=== PATIENT | male | born 1950 | race Caucasian/White ===

== ENCOUNTER 2020-11-24 12:03 | Emergency (ER) | payer OTHER, SELFPAY ==
[2020-11-24 12:13] VITALS: BP 131/84; PULSE 111; RESP 18; TEMP 36.5; O2SAT 94; BMI 34.5
--- NOTE | 2020-11-24 13:41 | US_ITS ---
WS: [id number] TESTICULAR ULTRASOUND HISTORY: testicular pain COMPARISON: None available. TECHNIQUE: Real-time and color Doppler imaging or utilized to perform a testicular ultrasound. Right testicle: 3.5 cm x 2.9 cm x 2.2 cm. Normal size and echogenicity. No mass or torsion. Normal color Doppler is present throughout. Systolic and diastolic velocities are both present. No significant hydrocele. Right epididymis: Normal epididymis with no increased vascularity. Left testicle: 3.4 cm x 2.3 cm x 1.9 cm. Normal size and echogenicity. No mass or torsion. Normal color Doppler is present throughout. Systolic and diastolic velocities are both present. No significant hydrocele. Left epididymis: Normal epididymis with minimal increased vascularity. US/US scrotum [id number] IMPRESSION: 1. No testicular mass or torsion. 2. Questionable very minimal increased vascularity within the LEFT epididymis. Mild epididymitis not excluded.
[2020-11-24 14:32] VITALS: BP 148/86; PULSE 88; RESP 16; O2SAT 96
--- NOTE | 2020-11-24 15:28 | ED_ITS ---
HPI - Male Genitourinary General: Chief complaint: Urogenital-Male Stated complaint: GROIN ISSUE Time Seen by Provider: 11/24/20 13:41 Source: patient Mode of arrival: ambulatory Limitations: no limitations History of Present Illness: HPI Narrative: Patient is a 70-year-old male who presents to the emergency department with testicular pain. He states that this has been going on for about 3 to 4 months now. He said he started with some swelling that he felt in the scrotum and now he has pain. He denies any penile discharge or bleeding. He denies any dysuria. Because this is persistent he would like to be evaluated for this. MD Complaint: testicle swelling Onset (ago): month(s) (4) Duration: constant Location: left testicle Severity: moderate Quality: aching Exacerbating factors: palpation Associated symptoms: Deny discharge, dysuria, fevers/chills, hematuria, nausea, rash, swelling, urinary incontinence, urinary retention, mass or vomiting Review of Systems General: Reports: 10 or more systems reviewed and unremarkable except in HPI and below GI: Denies: nausea or vomiting : Denies: dysuria, urinary incontinence or hematuria Physical Exam Const: COMMON NORMALS: no acute distress, average body habitus, patient oriented x3, no limitations, healthy appearing, alert and well nourished HENMT: COMMON NORMALS: normocephalic, atraumatic and moist oral mucous membranes HEAD & SCALP: normocephalic and atraumatic Neck/C-Spine: COMMON NORMALS: no meningeal signs and no JVD Resp: COMMON NORMALS: normal respiratory effort, No retractions, No use of accessory muscles, clear to auscultation bilaterally and percussion normal AUSCULTATION: clear to auscultation bilaterally PERCUSSION: percussion normal Cardio: COMMON NORMALS: no JVD, regular rate, regular rhythm, S1 normal heart sound present, S2 normal heart sound present, No gallops present (Cardio), No clicks present (Cardio), No murmurs present (Cardio), No rub (Cardio) and Peripheral pulses 2+ throughout RATE: regular rate RHYTHM: regular rhythm HEART SOUNDS: S1 normal heart sound present and S2 normal heart sound present PERIPHERAL PULSES: Peripheral pulses 2+ throughout GI: COMMON NORMALS: Normal to inspection, nondistended, normoactive bowel sounds present, Soft to palpation, non-tender, No hepatosplenomegaly present, no masses and no bruits PALPATION: Yes Soft to palpation and Yes No hepatosplenomegaly present : PENIS: normal penis and uncircumcised SCROTUM: Yes testes descended bilaterally TESTES: Yes testicular tenderness Testicular tenderness laterality: left and Yes epididymal tenderness Extremity: COMMON NORMALS: normal to inspection, full ROM, capillary refill normal, no calf tenderness and no pedal edema Neuro: COMMON NORMALS: patient oriented x3 SENSORIUM/ORIENTATION: Yes alert MENINGEAL SIGNS: Yes no meningeal signs Skin: COMMON NORMALS: no rashes or lesions noted, no wounds, turgor normal, no jaundice, no petechiae and no mottling GENERAL SKIN EXAM: no rashes or lesions noted and turgor normal Course Reevaluation(s): Reevaluation #1: Discussed his imaging findings with him. Features consistent with epididymitis. He will be treated with oral levofloxacin and he is to follow-up with his primary care provider. He voiced understanding and is in agreement with the plan. Time: 15:28 Vital Signs: Vital signs: Vital Signs Temperature 97.7 F 11/24/20 12:13 Pulse Rate 88 11/24/20 14:32 Respiratory Rate 16 11/24/20 14:32 Blood Pressure 148/86 11/24/20 14:32 Pulse Oximetry 96 11/24/20 14:32 MDM - Male MDM Narrative: Medical decision making narrative: 70-year-old male who presents to the emergency department with testicular pain. Evaluation in the emergency department is consistent with epididymitis based on ultrasound findings. He is discharged home with a prescription for levofloxacin. Medical Records: Attestation: I reviewed the patient's medical records. Imaging Data: US: Attestation: I personally reviewed and interpreted this imaging study as follows: Radiologist's impression: [address] [id number] ReportSigned Patient: Naomy JIMÉNEZ #: [id number]: [id number]#:[id number]/Sex: 70 / MADM Date: 11/24/20Loc: ERRoom/Bed:Attending Dr: Ordering Provider/Ordering MD: Cristobal Stephens MD, [facility] – [place], [place] Date of Service: 11/24/20 Procedure(s): US scrotum 80691 Accession Number(s): [id number] Report Number: [id number] WS: [id number] TESTICULAR ULTRASOUND HISTORY: testicular pain COMPARISON: None available. TECHNIQUE: Real-time and color Doppler imaging or utilized to perform a testicular ultrasound. Right testicle: 3.5 cm x 2.9 cm x 2.2 cm. Normal size and echogenicity. No mass or torsion. Normal color Doppler is present throughout. Systolic and diastolic velocities are both present. No significant hydrocele. Right epididymis: Normal epididymis with no increased vascularity. Left testicle: 3.4 cm x 2.3 cm x 1.9 cm. Normal size and echogenicity. No mass or torsion. Normal color Doppler is present throughout. Systolic and diastolic velocities are both present. No significant hydrocele. Left epididymis: Normal epididymis with minimal increased vascularity. US/US scrotum [id number] IMPRESSION: 1. No testicular mass or torsion. 2. Questionable very minimal increased vascularity within the LEFT epididymis. Mild epididymitis not excluded. Dictated By:Shweta Garcia DOSigned By:Shweta Garcia DOSigned Date/Time:11/24/20 1507DD/ 1505 Discharge Plan Discharge Patient Disposition: Home Clinical Impression: Epididymitis Condition: Stable Prescriptions: New levofloxacin 500 mg tablet 500 mg PO DAILY 10 Days Qty: 10 RF: 0 Discharge Orders: Discharge ED (Routine); Ordered 11/24/20 Ordered By: Cristobal Stephens Referrals: ALEKS FINN, [Primary Care Provider] - 1-3 days Discharge Diet: Usual diet Discharge Activity: Increase activity as tolerated Patient Instructions: Epididymitis (ED) Activity Restrictions/Additional Instructions: Return for any new or worsening symptoms. Follow-up with your primary care provider within 3 days. Take the antibiotic as prescribed. Drink plenty of fluids to keep well-hydrated. Coding Level of Care Code ED Interlocking Installer for Addison Lehman
== END 2020-11-24 16:02 | disposition home or self-care (01) ==
PROVIDERS: Emergency Provider Family Medicine
DX: N45.1 Epididymitis (principal)
CPT/HCPCS: 76870; 99282

== ENCOUNTER → 2021-12-03 14:55 | Outpatient (BNVA) | payer OTHER, SELFPAY | PROVIDERS: Referring Provider Family Medicine; Visit Provider Podiatrist Foot & Ankle Surgery | DX: I73.9 Peripheral vascular disease, unspecified (principal); M77.41 Metatarsalgia, right foot; M77.42 Metatarsalgia, left foot; M20.31 Hallux varus (acquired), right foot; M20.32 Hallux varus (acquired), left foot; I87.2 Venous insufficiency (chronic) (peripheral); F17.210 Nicotine dependence, cigarettes, uncomplicated | CPT/HCPCS: 99204 ==

== ENCOUNTER → 2022-02-02 14:24 | Outpatient (BNVA) | payer OTHER, SELFPAY | PROVIDERS: Visit Provider Podiatrist Foot & Ankle Surgery | DX: I73.9 Peripheral vascular disease, unspecified (principal); M77.41 Metatarsalgia, right foot; M77.42 Metatarsalgia, left foot; M20.31 Hallux varus (acquired), right foot; M20.32 Hallux varus (acquired), left foot; I87.2 Venous insufficiency (chronic) (peripheral); M79.672 Pain in left foot; M79.671 Pain in right foot | CPT/HCPCS: 99214 ==

== ENCOUNTER 2022-04-15 08:02 | Outpatient (CLI) | payer OTHER, SELFPAY ==
--- NOTE | 2022-04-15 | USCV_ITS ---
Krishna Bernard Age: 71 Gender: M : 1950 Exam Date: 04/15/2022 08:16 Ordering Phys: Lefty Kumar DPM Technologist: Exam Location: [facility] [place]_ Indication: poor pulses RIGHT LEFT Brachial 155.00 mmHg Brachial 155.00 mmHg Pressure (mmHg) Waveform Pressure (mmHg) Waveform 144.00 Above Knee 191.00 149.00 Below Knee 182.00 119.00 EDGE CUTTER 162.00 130.00 DPA 122.00 0.84 Ankle/Brachial Index 0.79 152.00 Pre-Exercise Toe Pressure 169.00 0.98 Pre-Exercise Toe/Brachial Index 1.00 FINDINGS Diminished resting ABIs bilaterally Normal resting TBI bilaterally Blunting of the dicrotic notch bilaterally CONCLUSIONS Features suggestive of mild peripheral arterial disease bilaterally Dr Frannie Thapa MD FAC (Electronically Signed) Final Date: 19 April 2022 10:09 S
== END 2022-04-15 08:03 | disposition home or self-care (01) ==
LOC: RAD 08:03
PROVIDERS: Visit Provider Podiatrist Foot & Ankle Surgery
DX: R09.89 Other specified symptoms and signs involving the circulatory and respiratory systems (principal)
CPT/HCPCS: 93923

== ENCOUNTER 2022-07-12 14:27 | Emergency (ER) | payer OTHER, SELFPAY ==
--- NOTE | 2022-07-12 14:42 | CTR_ITS ---
PROCEDURE INFORMATION: Exam: CT Head Without Contrast Exam date and time: 07/12/2022 3:04 PM Age: 72 years old Clinical indication: Weakness, extremity; Additional info: HX stroke, recent TECHNIQUE: Imaging protocol: Computed tomography of the head without contrast. Radiation optimization: All CT scans at this facility use at least one of these dose optimization techniques: automated exposure control; mA and/or kV adjustment per patient size (includes targeted exams where dose is matched to clinical indication); or iterative reconstruction. COMPARISON: No relevant prior studies available. RADIATION DOSE METRICS: Total DLP (mGy-cm): 1167.38 FINDINGS: Brain: Minimal hypoattenuating foci are noted in the anterior lateral ventricular periventricular white matter bilaterally. No intracranial hemorrhage. No acute cortical infarction identified. Ventricles: Focal hyperdense lesion anterior 3rd ventricle measuring 4.6 x 5.2 x 6.0 mm mm (series 3, image 23; series 8, image 38; series 7, image 36). No hydrocephalus. No evidence of increased intracranial pressure. Mild prominence of the ventricular system and subarachnoid spaces is consistent with the patient's age of 72 years. Paranasal sinuses: Visualized sinuses are unremarkable. No fluid levels. Mastoid air cells: Visualized mastoid air cells are well aerated. Bones/joints: No acute abnormality. No acute fracture. Soft tissues: Unremarkable. Vasculature: Atherosclerotic calcifications are present involving the carotid artery siphons bilaterally and the right vertebral artery. CT/CT head wo con* [id number] IMPRESSION: 1. Third ventricular colloid cyst. 2. Age appropriate supratentorial and infratentorial atrophy. 3. Chronic white matter microvascular ischemic disease. 4. No acute intracranial abnormality identified.
[2022-07-12 14:53] VITALS: BP 155/82; PULSE 92; RESP 14; TEMP 36.7; O2SAT 94; BMI 32.5
--- NOTE | 2022-07-12 15:05 | XR_ITS ---
WS: [id number] Portable AP upright chest, 07/12/2022 Clinical Data: weakness Comparison: None. Findings: No nodules, masses or effusions are seen. The heart is normal. The pulmonary vascularity is not increased. No pneumonia or pneumothorax is seen. The aortic arch shows mild tortuosity. XR/XR chest 1V portable [id number] Impression: Atherosclerosis.
[2022-07-12 16:30] LABS: Basophils % 0.5 %; Eosinophils # 0.3 10^3/uL (0.0-0.8); Eosinophils % 3.7 %; Hematocrit 46.5 % (42.0-52.0); Hemoglobin 15.7 g/dL (11.7-16.6); Lymphocytes # 2.1 10^3/uL (0.8-4.8); Lymphocytes % 28.3 %; Mean Corpuscular HGB Conc 33.8 g/dL (30.0-36.0); Mean Corpuscular Hemoglobin 32.4 pg (28.0-34.0); Mean Corpuscular Volume 95.9 fl (80-94); Monocytes # 0.7 10^3/uL (0.2-0.9); Monocytes % 9.3 %; Neutrophils # 4.27 10^3/uL (1.8-7.7); Neutrophils % 57.9 %; Nucleated Red Blood Cells % 0 %; Platelet Count 181 10^3/cmm (130-400); Red Blood Count 4.85 10^6/uL (4.1-5.3); Red Cell Distribution Width 12.8 % (12.1-15.1); White Blood Count 7.4 10^3/uL (4.0-10.0)
[2022-07-12 16:55] LABS: Alanine Aminotransferase 21 U/L (0-41); Albumin Level 4.1 g/dL (3.5-5.2); Alkaline Phosphatase 87 U/L (40-130); Anion Gap 13.6 (5-19); Aspartate Amino Transferase 20 U/L (0-40); Blood Urea Nitrogen 12 mg/dL (8-23); Calcium 9.9 mg/dL (8.5-10.5); Carbon Dioxide 26 mmol/L (22-29); Chloride 97 mmol/L (98-107); Globulin 2.7 g/dL (1.3-4.6); Glucose 125 mg/dL (65-115); Osmolality Calculated 277 mOsm/kg (285-295); Potassium 3.6 mmol/L (3.5-5.1); Sodium 133 mmol/L (136-145); Total Bilirubin 0.7 mg/dL (0.15-1.2); Total Protein 6.8 g/dL (6.6-8.7)
[2022-07-12 18:56] VITALS: PULSE 98; RESP 17; O2SAT 97
--- NOTE | 2022-07-12 19:23 | ED_ITS ---
HPI - Weakness General: Chief complaint: Weakness Stated complaint: had a stroke last week and doesn't feel well Time Seen by Provider: 07/12/22 19:01 Source: patient Mode of arrival: ambulatory Limitations: no limitations History of Present Illness: 72-year-old male states that on Tuesday he started having some weakness and states that he had left-sided visual deficit he states it lasted roughly day is since resolved states he feels back to his baseline and [facility] but wanted to be checked to make sure nothing acute was going on he denies any headache denies any chest pain denies any fevers. Associated symptoms: Denies chest pain, chills, dysuria, easy bruising, fever(s), headache(s), nausea or vomiting Review of Systems Const: Denies: fever(s), chills, body aches or change in appetite Eyes: Denies: blurry vision or eye discomfort ENMT: Denies: throat pain or dental pain Card: Denies: chest pain Resp: Denies: dyspnea GI: Denies: abdominal pain, nausea, vomiting or diarrhea : Denies: dysuria Musc: Denies: neck pain or back pain Skin/Breast: Denies: rash Neuro: Denies: headache(s) Psych: Denies: depression Jake/Lymph: Denies: easy bruising All/Imm: Denies: urticaria PFSH ED PFSH: Medical History (Updated 07/12/22 @ 19:48 by Sandra Bang MD) Chronic venous insufficiency Social History Smoking and tobacco status: current every day smoker Physical Exam Const: COMMON NORMALS: no acute distress, patient oriented x3, healthy appearing and alert ORIENTATION/CONSCIOUSNESS: Yes oriented to person and Yes oriented to place HENMT: COMMON NORMALS: normocephalic and atraumatic HEAD & SCALP: normocephalic and atraumatic Eye: COMMON NORMALS: Equal, round and reactive pupils present and EOMs intact bilaterally PUPIL: Yes Equal, round and reactive pupils present Neck/C-Spine: COMMON NORMALS: full ROM and supple Chest: COMMONS NORMALS: normal inspection of the chest and normal palpation of entire chest wall Resp: COMMON NORMALS: normal respiratory effort, No retractions, No use of accessory muscles and clear to auscultation bilaterally AUSCULTATION: clear to auscultation bilaterally Cardio: COMMON NORMALS: regular rate, regular rhythm and No murmurs present (Cardio) RATE: regular rate RHYTHM: regular rhythm GI: COMMON NORMALS: Normal to inspection, nondistended, normoactive bowel sounds present, Soft to palpation, non-tender and no masses PALPATION: Yes Soft to palpation Extremity: COMMON NORMALS: normal to inspection and full ROM Neuro: COMMON NORMALS: patient oriented x3, moves all extremities and no focal motor deficits SENSORIUM/ORIENTATION: Yes alert, Yes oriented to person and Yes oriented to place CRANIAL NERVES: Yes CN normal except as noted SPEECH: speech normal GAIT: Yes Normal gait present MOTOR EXAM: 5/5 motor strength present throughout Psych: COMMON NORMALS: mental status grossly normal, Normal thought process present and cooperative THOUGHT PROCESS: Normal thought process present Skin: COMMON NORMALS: no rashes or lesions noted and no wounds GENERAL SKIN EXAM: no rashes or lesions noted Course Vital Signs: Vital signs: Vital Signs Temperature 98.0 F 07/12/22 14:53 Pulse Rate 98 07/12/22 18:56 Respiratory Rate 17 07/12/22 18:56 Blood Pressure 155/82 07/12/22 14:53 Pulse Oximetry 97 07/12/22 18:56 Oxygen Delivery Me thod 07/12/22 18:56 MDM - Weakness Medical Decision Making Patient presents here with weakness likely a TIA he did have a loss of vision that since resolved his NIH here is 0 CT head is normal he is already on a statin and aspirin daily he is to [facility] return if worsening he understands agrees to plan. Lab Data 07/12/22 16:00 07/12/22 16:[address] 07/12/22 14:42 IMPRESSION: 1. Third ventricular colloid cyst. 2. Age appropriate supratentorial and infratentorial atrophy. 3. Chronic white matter microvascular ischemic disease. 4. No acute intracranial abnormality identified. Chest X-Ray 07/12/22 15:05 Impression: Atherosclerosis. Laboratory Results WBC 7.4 10^3/uL (4.0-10.0) 07/12/22 16:00 RBC 4.85 10^6/uL (4.1-5.3) 07/12/22 16:00 Hgb 15.7 g/dL (11.7-16.6) 07/12/22 16:00 Hct 46.5 % (42.0-52.0) 07/12/22 16:00 MCV 95.9 fl (80-94) H 07/12/22 16:00 MCH 32.4 pg (28.0-34.0) 07/12/22 16:00 MCHC 33.8 g/dL (30.0-36.0) 07/12/22 16:00 RDW 12.8 % (12.1-15.1) 07/12/22 16:00 Plt Count 181 10^3/cmm (130-400) 07/12/22 16:00 MPV 10.0 fL (7.4-10.4) 07/12/22 16:00 Neut % (Auto) 57.9 % 07/12/22 16:00 Lymph % (Auto) 28.3 % 07/12/22 16:00 [place] % (Auto) 9.3 % 07/12/22 16:00 Eos % (Auto) 3.7 % 07/12/22 16:00 Baso % (Auto) 0.5 % 07/12/22 16:00 Neut # (Auto) 4.27 10^3/uL (1.8-7.7) 07/12/22 16:00 Lymph # (Auto) 2.1 10^3/uL (0.8-4.8) 07/12/22 16:00 [place] # (Auto) 0.7 10^3/uL (0.2-0.9) 07/12/22 16:00 Eos # (Auto) 0.3 10^3/uL (0.0-0.8) 07/12/22 16:00 Baso # (Auto) 0.0 10^3/uL (0.0-0.1) 07/12/22 16:00 Nucleated RBC % (auto) 0 % 07/12/22 16:00 Nucleated RBCs # 0.0 /100WBC 07/12/22 16:00 Sodium 133 mmol/L (136-145) L 07/12/22 16:00 Potassium 3.6 mmol/L (3.5-5.1) 07/12/22 16:00 Chloride 97 mmol/L (98-107) L 07/12/22 16:00 Carbon Dioxide 26 mmol/L (22-29) 07/12/22 16:00 Anion Gap 13.6 (5-19) 07/12/22 16:00 BUN 12 mg/dL (8-23) 07/12/22 16:00 Creatinine 0.8 mg/dL (0.7-1.2) 07/12/22 16:00 GFR Calculation Not Reportable 07/12/22 16:00 Glucose 125 mg/dL (65-115) H 07/12/22 16:00 Calculated Osmolality 277 mOsm/kg (285-295) L 07/12/22 16:00 Calcium 9.9 mg/dL (8.5-10.5) 07/12/22 16:00 Total Bilirubin 0.7 mg/dL (0.15-1.2) 07/12/22 16:00 AST 20 U/L (0-40) 07/12/22 16:00 ALT 21 U/L (0-41) 07/12/22 16:00 Alkaline Phosphatase 87 U/L (40-130) 07/12/22 16:00 Total Protein 6.8 g/dL (6.6-8.7) 07/12/22 16:00 Albumin 4.1 g/dL (3.5-5.2) 07/12/22 16:00 Globulin 2.7 g/dL (1.3-4.6) 07/12/22 16:00 Discharge Plan Discharge Patient Disposition: Home Clinical Impression: Brain TIA, Weakness Condition: Stable Prescriptions: No Action (DME) custom molded inserts with shoes See Rx Instructions .Route .MEDSUPPLY Qty: 1 0RF Rx Instructions: As directed Discharge Orders: Discharge ED (Routine); Ordered 07/12/22 Ordered By: Sandra Bang Referrals: [facility] [Primary Care Provider] - Discharge Diet: Advance as tolerated Discharge Activity: Resume usual activity Patient Instructions: Transient Ischemic Attack (ED) Coding Level of Care Code ED Vice President Of Engineering for Addison Fwmallory Exam Comprehensive NIH stroke score NIHSS Level Of Consciousness - 1a: 0 Level Of Consciousness Questions - 1b: Both Correct Level Of Consciousness Commands - 1c: Both Correct Best Gaze - 2: Normal Visual Farrell - 3: No Visual Loss Facial Palsy - 4: Normal Motor Arm Right - 5: No Drift Motor Leg Right - 6: No Drift Motor Leg Left - 6: No Drift Limb Ataxia - 7: Absent Sensory - 8: Normal Best Language - 9: No Aphasia Dysarthia - 10: Normal Extinction And Inattention - 11: 0
--- NOTE | 2022-07-12 19:37 | ECG_ITS ---
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 Measurements Intervals [place]ons Rate: 80 P: 82 WV: 178 QRS: 19 QRSD: 140 T: 34 QT: 402 QTc: 464 Interpretive Statements Possible sinus rhythm with bundle branch block. Baseline artifact ABNORMAL ECG No previous ECG available for comparison Electronically Signed On 07-14-2022 0:00:19 REPAIR COIL WINDER by Frannie Thapa M.D. [id number]
== END 2022-07-12 19:59 | disposition home or self-care (01) ==
PROVIDERS: Physician Assistant; Emergency Provider Emergency Medicine
DX: G45.9 Transient cerebral ischemic attack, unspecified (principal); R53.1 Weakness; F17.210 Nicotine dependence, cigarettes, uncomplicated
CPT/HCPCS: 36415; 70450; 71045; 80053; 85025; 93005; 99284

== ENCOUNTER 2022-08-14 15:06 | Emergency (ER) | payer OTHER, SELFPAY ==
[2022-08-14 15:14] VITALS: BP 122/78; PULSE 93; RESP 18; TEMP 36.7; O2SAT 93
--- NOTE | 2022-08-14 15:29 | CTR_ITS ---
PROCEDURE INFORMATION: Exam: CT Head Without Contrast Exam date and time: 08/14/2022 4:26 PM Age: 72 years old Clinical indication: Other: Vision changes in left eye; Patient HX: PT states had a stroke TECHNIQUE: Imaging protocol: Computed tomography of the head without contrast. Radiation optimization: All CT scans at this facility use at least one of these dose optimization techniques: automated exposure control; mA and/or kV adjustment per patient size (includes targeted exams where dose is matched to clinical indication); or iterative reconstruction. COMPARISON: CT head wo con* [id number] 07/12/2022 3:04 PM RADIATION DOSE METRICS: Total DLP (mGy-cm): 1105.4 FINDINGS: Brain: No acute infarct. No hemorrhage. Stable involutional changes of the brain. No mass effect. Cerebral ventricles: Stable 5 mm hyperdensity at the level of the foramen of Monro, likely a colloid cyst. No ventriculomegaly. Paranasal sinuses: Scattered paranasal sinus mucosal thickening, without air-fluid level present. Mastoid air cells: Visualized mastoid air cells are well aerated. Bones/joints: Unremarkable. No acute fracture. Soft tissues: Unremarkable. CT/CT head wo con* [id number] IMPRESSION: 1. No acute intracranial abnormality. 2. Stable 5 mm colloid cyst at the level of the foramina of Monro.
--- NOTE | 2022-08-14 16:19 | PC.NURSE ---
WHILE IN LOBBY WITH PT PT IS SITTING IN WC CONDITION IS UNCHANGED.
--- NOTE | 2022-08-14 16:44 | ED_ITS ---
HPI - Neuro Symptoms/Deficit General: Chief Complaint: Neuro Symptoms/Deficit Stated Complaint: weakness Time Seen by Provider: 08/14/22 16:33 Source: patient and family Mode of arrival: ambulatory Limitations: no limitations History of Present Illness: See nursing assessment. Patient states he has had intermittent blurred vision in the left eye for about a month. See ER visit from 07/12/2022. Patient had negative work-up at that time. Patient states that he is having strokes frequently. His strokes are actually blurred vision in his left eye. He denies any weakness. He denies any paresthesias or neurological changes other than left eye blurred vision. Patient was diagnosed with TIA on last visit. Patient states he takes a blood pressure medication statin drug, vitamins, baby aspirin daily. Denies any other blood thinners. He smokes about a pack cigarettes per day. Uses a cane to walk. Associated symptoms: Reports headache(s) (Occasional mild right-sided frontal headache.); Deny chest pain, nausea, vertigo or vomiting Review of Systems Const: Denies: fever(s) or chills Eyes: Reports: blurry vision; Denies: blind spots, photophobia or eye discomfort ENMT: Denies: throat pain Card: Denies: chest pain or palpitations Resp: Denies: dyspnea or wheezing GI: Denies: abdominal pain, nausea or vomiting : Denies: flank pain Musc: Denies: neck pain or back pain Skin/Breast: Denies: rash or pruritus Neuro: Reports: headache(s) (Occasional mild right-sided frontal headache.); Denies: numbness in extremities, weakness in extremities, sensory changes, lack of coordination, difficulty walking, dizziness, vertigo or confusion Psych: Denies: anxiety Jake/Lymph: Denies: enlarged lymph nodes PFSH ED PFSH: Medical History Chronic venous insufficiency Social History Smoking and tobacco status: current every day smoker NIH stroke score NIHSS: Level Of Consciousness - 1a: 0 Level Of Consciousness Questions - 1b: Both Correct Level Of Consciousness Commands - 1c: Both Correct Best Gaze - 2: Normal Visual Farrell - 3: No Visual Loss Facial Palsy - 4: Normal Motor Arm Right - 5: No Drift Motor Arm Left - 5: No Drift Motor Leg Right - 6: No Drift Motor Leg Left - 6: No Drift Limb Ataxia - 7: Absent Sensory - 8: Normal Best Language - 9: No Aphasia Dysarthia - 10: Normal Extinction And Inattention - 11: 0 Score: Total Score: 0 Physical Exam Const: COMMON NORMALS: no acute distress, patient oriented x3, no limitations and well nourished GENERAL APPEARANCE: cooperative HENMT: COMMON NORMALS: normocephalic and atraumatic HEAD & SCALP: normocephalic and atraumatic FACE & SINUS: normal facial exam Eye: COMMON NORMALS: Equal, round and reactive pupils present, EOMs intact bilaterally, conjunctivae normal and no scleral icterus GENERAL EYE: appearance normal, both eyes and all related structures CONJUNCTIVA: Yes conjunctivae normal PUPIL: Yes Equal, round and reactive pupils present Neck/C-Spine: COMMON NORMALS: full ROM, no lymphadenopathy, supple and no meningeal signs GENERAL: Yes normal visual inspection Lymph: LYMPHATIC: no lymphadenopathy noted Chest: COMMONS NORMALS: normal inspection of the chest and normal palpation of entire chest wall CHEST: No Ecchymosis present and No rash Resp: COMMON NORMALS: normal respiratory effort, No retractions and clear to auscultation bilaterally EFFORT & INSPECTION: No respiratory distress AUSCULTATION: clear to auscultation bilaterally Cardio: COMMON NORMALS: regular rate, regular rhythm and Peripheral pulses 2+ throughout JUGULAR VENOUS DISTENTION: no JVD RATE: regular rate RHYTHM: regular rhythm PERIPHERAL PULSES: Peripheral pulses 2+ throughout GI: COMMON NORMALS: Normal to inspection, nondistended, normoactive bowel sounds present and non-tender OTHER: Morbid obesity : COMMON NORMALS: Yes no CVA tenderness BLADDER/KIDNEY EXAM: Yes no CVA tenderness Back/Pelvis: COMMON NORMALS: no CVA tenderness Extremity: COMMON NORMALS: normal to inspection, full ROM and capillary refill normal Neuro: COMMON NORMALS: patient oriented x3, CN's II-XII intact bilaterally, no focal motor deficits and no sensory deficits noted MENINGEAL SIGNS: Yes no meningeal signs OTHER: No focal deficits. Patient states his vision in his left eye is slightly blurred. Otherwise no other deficits. Speech is clear. Patient ambulates without assistance. Psych: COMMON NORMALS: mental status grossly normal and Normal thought process present THOUGHT PROCESS: Normal thought process present Skin: COMMON NORMALS: no rashes or lesions noted and no wounds GENERAL SKIN EXAM: no rashes or lesions noted Course Vital Signs: Vital signs: Vital Signs Temperature 98.1 F 08/14/22 17:40 Pulse Rate 80 08/14/22 17:40 Respiratory Rate 18 08/14/22 17:40 Blood Pressure 128/72 08/14/22 17:40 Pulse Oximetry 95 08/14/22 17:40 Oxygen Delivery Me thod 08/14/22 17:40 MDM - Neuro Symptoms/Deficit Medical Decision Making Blurred vision left eye. Possible TIA versus retinal problem Lab Data 08/14/22 17:10 08/14/22 17:[address] 08/14/22 15:29 IMPRESSION: 1. No acute intracranial abnormality. 2. Stable 5 mm colloid cyst at the level of the foramina of Monro. Laboratory Results WBC 6.8 10^3/uL (4.0-10.0) 08/14/22 17:10 RBC 4.54 10^6/uL (4.1-5.3) 08/14/22 17:10 Hgb 14.4 g/dL (11.7-16.6) 08/14/22 17:10 Hct 44.2 % (42.0-52.0) 08/14/22 17:10 MCV 97.4 fl (80-94) H 08/14/22 17:10 MCH 31.7 pg (28.0-34.0) 08/14/22 17:10 MCHC 32.6 g/dL (30.0-36.0) 08/14/22 17:10 RDW 13.0 % (12.1-15.1) 08/14/22 17:10 Plt Count 186 10^3/cmm (130-400) 08/14/22 17:10 MPV 9.5 fL (7.4-10.4) 08/14/22 17:10 Neut % (Auto) 56.7 % 08/14/22 17:10 Lymph % (Auto) 30.1 % 08/14/22 17:10 [place] % (Auto) 9.0 % 08/14/22 17:10 Eos % (Auto) 3.5 % 08/14/22 17:10 Baso % (Auto) 0.4 % 08/14/22 17:10 Neut # (Auto) 3.86 10^3/uL (1.8-7.7) 08/14/22 17:10 Lymph # (Auto) 2.1 10^3/uL (0.8-4.8) 08/14/22 17:10 [place] # (Auto) 0.6 10^3/uL (0.2-0.9) 08/14/22 17:10 Eos # (Auto) 0.2 10^3/uL (0.0-0.8) 08/14/22 17:10 Baso # (Auto) 0.0 10^3/uL (0.0-0.1) 08/14/22 17:10 Nucleated RBC % (auto) 0 % 08/14/22 17:10 Nucleated RBCs # 0.0 /100WBC 08/14/22 17:10 Sodium 141 mmol/L (136-145) 08/14/22 17:10 Potassium 4.5 mmol/L (3.5-5.1) 08/14/22 17:10 Chloride 104 mmol/L (98-107) 08/14/22 17:10 Carbon Dioxide 27 mmol/L (22-29) 08/14/22 17:10 Anion Gap 14.5 (5-19) 08/14/22 17:10 BUN 10 mg/dL (8-23) 08/14/22 17:10 Creatinine 0.8 mg/dL (0.7-1.2) 08/14/22 17:10 GFR Calculation Not Reportable 08/14/22 17:10 Glucose 112 mg/dL (65-115) 08/14/22 17:10 Calculated Osmolality 292 mOsm/kg (285-295) 08/14/22 17:10 Calcium 9.1 mg/dL (8.5-10.5) 08/14/22 17:[address] Head: Radiologist's impression: PROCEDURE INFORMATION: Exam: CT Head Without Contrast Exam date and time: 08/14/2022 4:26 PM Age: 72 years old Clinical indication: Other: Vision changes in left eye; Patient HX: PT states had a stroke TECHNIQUE: Imaging protocol: Computed tomography of the head without contrast. Radiation optimization: All CT scans at this facility use at least one of these dose optimization techniques: automated exposure control; mA and/or kV adjustment per patient size (includes targeted exams where dose is matched to clinical indication); or iterative reconstruction. COMPARISON: CT head wo con* [id number] 07/12/2022 3:04 PM RADIATION DOSE METRICS: Total DLP (mGy-cm): 1105.4 FINDINGS: Brain: No acute infarct. No hemorrhage. Stable involutional changes of the brain. No mass effect. Cerebral ventricles: Stable 5 mm hyperdensity at the level of the foramen of Monro, likely a colloid cyst. No ventriculomegaly. Paranasal sinuses: Scattered paranasal sinus mucosal thickening, without air-fluid level present. Mastoid air cells: Visualized mastoid air cells are well aerated. Bones/joints: Unremarkable. No acute fracture. Soft tissues: Unremarkable. CT/CT head wo con* [id number] IMPRESSION: 1. No acute intracranial abnormality. 2. Stable 5 mm colloid cyst at the level of the foramina of Monro. ? Dictated By: Allen Ochoa MD Signed By: Allne Ochoa MD Signed Date/Time: 08/14/22 1659 EKG Data EKG 1: I personally reviewed and interpreted this EKG as follows: EKG interpretation date: 08/14/22 EKG interpretation time: 16:56 Prior EKG tracings: available for review (No change from previous EKG.) Interpretation: Normal sinus rhythm with right bundle branch block. Normal QT interval, VT interval, normal P waves normal T waves. Normal axis. Normal ST segment. Heart rate 80 Discharge Plan Discharge Patient Disposition: Home Clinical Impression: Blurred vision, left eye, Right bundle branch block Condition: Stable Prescriptions: No Action (DME) custom molded inserts with shoes See Rx Instructions .Route .MEDSUPPLY Qty: 1 0RF Rx Instructions: As directed Discharge Orders: Discharge ED (Routine); Ordered 08/14/22 Ordered By: Marin Miller Discharge Diet: Cardiac and Low Salt Discharge Activity: Increase activity as tolerated Patient Instructions: Blurred Vision (ED) Activity Restrictions/Additional Instructions: Take aspirin 81 mg tablet daily. 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 CT scan of your head today showed no evidence of stroke. Coding Level of Care Code ED Rnfa for Chg Fwd History Comprehensive Exam Comprehensive Medical Decision Making Moderate Complexity
--- NOTE | 2022-08-14 16:44 | ECG_ITS ---
[facility] Test Date: 2022-08-14 Pat Name: Krishna Bernard Department: Room: Gender: Male Trend Investigator: : 1950 Requested By: Marin Lu Order Number: [id number] [place] MD: Pedro Luis Bravo M.D. Measurements Intervals [place] Rate: 80 P: 65 AL: 172 QRS: 59 QRSD: 131 T: 46 QT: 387 QTc: 447 Interpretive Statements SINUS RHYTHM RIGHT BUNDLE BRANCH BLOCK [120+ ms QRS DURATION, UPRIGHT V1, 40+ ms S IN I/aVL/V4/V5/V6] Compared to ECG 07/12/2022 19:37:59 Right bundle-branch block now present Electronically Signed On 08-15-2022 10:05:35 TECHNOLOGY ADMINISTRATOR by Pedro Luis Bravo M.D. [id number]
[2022-08-14 17:22] LABS: Basophils % 0.4 %; Eosinophils # 0.2 10^3/uL (0.0-0.8); Eosinophils % 3.5 %; Hematocrit 44.2 % (42.0-52.0); Hemoglobin 14.4 g/dL (11.7-16.6); Lymphocytes # 2.1 10^3/uL (0.8-4.8); Lymphocytes % 30.1 %; Mean Corpuscular HGB Conc 32.6 g/dL (30.0-36.0); Mean Corpuscular Hemoglobin 31.7 pg (28.0-34.0); Mean Corpuscular Volume 97.4 fl (80-94); Mean Platelet Volume 9.5 fL (7.4-10.4); Monocytes # 0.6 10^3/uL (0.2-0.9); Neutrophils # 3.86 10^3/uL (1.8-7.7); Neutrophils % 56.7 %; Nucleated Red Blood Cells % 0 %; Platelet Count 186 10^3/cmm (130-400); Red Blood Count 4.54 10^6/uL (4.1-5.3); White Blood Count 6.8 10^3/uL (4.0-10.0)
[2022-08-14 17:40] VITALS: BP 128/72; PULSE 80; RESP 18; TEMP 36.7; O2SAT 95
[2022-08-14 17:44] LABS: Anion Gap 14.5 (5-19); Blood Urea Nitrogen 10 mg/dL (8-23); Calcium 9.1 mg/dL (8.5-10.5); Carbon Dioxide 27 mmol/L (22-29); Chloride 104 mmol/L (98-107); Glucose 112 mg/dL (65-115); Osmolality Calculated 292 mOsm/kg (285-295); Potassium 4.5 mmol/L (3.5-5.1); Sodium 141 mmol/L (136-145)
[2022-08-14 18:39] VITALS: BP 128/72; PULSE 83; RESP 18; O2SAT 97
== END 2022-08-14 18:40 | disposition home or self-care (01) ==
PROVIDERS: Emergency Provider Family Medicine
DX: H53.8 Other visual disturbances (principal); I45.10 Unspecified right bundle-branch block; F17.210 Nicotine dependence, cigarettes, uncomplicated
CPT/HCPCS: 36415; 70450; 80048; 85025; 93005; 99285

== ENCOUNTER 2022-10-04 12:38 | Outpatient (CLI) | payer OTHER, SELFPAY ==
--- NOTE | 2022-10-04 12:56 | USCV_ITS ---
Marco Antonio Krishna Age: 72 Gender: M : 1950 Exam Date: 10/04/2022 13:03 Ordering Phys: JAMES GALINDO Technologist: Annette Britton Exam Location: [facility] [place]_ Indication: TIA Risk Factors: Previous Vascular Surgery: Right Brachial BP: / Left Brachial BP: / Right Left Velocity (cm/s) Spectral Plaque Velocity (cm/s) Spectral Plaque Syst/Diast Broadening Syst/Diast Broadening 70.70/ 15.50 Prox CCA 75.60 / 15.30 88.60/ 28.70 Mid CCA 130.10/ 17.10 86.00/ 23.40 Distal CCA 76.00 / 20.50 117.60/28.70 Prox ICA 26.70 / 11.20 128.20/24.10 Mid ICA 488.30/ 224.60 77.10/ 25.70 Distal ICA 94.70 / 21.30 181.15 ECA 106.50 1.45 ICA/CCA 3.75 Antegrade Vertebral Antegrade 95.30/ 32.10 cm/s 113.7/ 32.00 cm/s 0 Tri Subclavian Tri 167.4 121.2 0 0 CONCLUSIONS Left ICA stenosis 70-99%. in the mid ICA. Recommend CTA. 50% mid LEFT CCA stenosis. Severe atheromatous plaque Right ICA stenosis <50%. Normal antegrade Doppler flow noted in the right vertebral artery. Normal antegrade Doppler flow noted in the left vertebral artery. Ezra Hernandez MD (Electronically Signed) Final Date: 04 October 2022 14:29 S
== END 2022-10-04 12:39 | disposition home or self-care (01) ==
LOC: RAD 12:44
PROVIDERS: Visit Provider Thoracic Surgery (Cardiothoracic Vascular Surgery)
DX: G45.9 Transient cerebral ischemic attack, unspecified (principal); I65.23 Occlusion and stenosis of bilateral carotid arteries
CPT/HCPCS: 93880

== ENCOUNTER → 2022-11-16 14:44 | Outpatient (BNVA) | payer OTHER, SELFPAY | PROVIDERS: Visit Provider Nurse Practitioner Family | DX: L40.9 Psoriasis, unspecified (principal); L82.1 Other seborrheic keratosis; L28.1 Prurigo nodularis; L30.8 Other specified dermatitis | CPT/HCPCS: 11102; 69100; 99204 ==

== ENCOUNTER 2022-11-22 09:36 | Outpatient (CLI) | payer OTHER, SELFPAY ==
--- NOTE | 2022-11-22 10:08 | USCV_ITS ---
Marco Antonio Krishna Age: 72 Gender: M : 1950 Exam Date: 11/22/2022 10:26 Ordering Phys: JAMES GALINDO Technologist: CT Exam Location: [facility] [place] Indication: screening HISTORY: Diameter (cm) AP x Transverse x Length Velocity (cm/s) Waveform Prox Aorta: 2.07 x 1.99 x 104.00 Mid Aorta: 2.18 x 2.10 x 87.30 Distal Aorta: 2.47 x 2.28 x 97.00 Right Iliac Prox: 1.41 x 1.34 x 164.90 Left Iliac Prox: 1.45 x 1.49 x 144.20 Stent Prox Landing x x Aneurysmal Sac Max x x Lt Lat Sac Dim Rt Lat Sac Dim Stent Dist Landing x x Right Iliac Stent x x Left Iliac Stent x x Right Renal Art Left Renal Art FINDINGS: no real aaa CONCLUSIONS No evidence of abdominal aortic or bilateral iliac aneurysm. Ezra Hernandez MD (Electronically Signed) Final Date: 22 November 2022 17:13 S
--- NOTE | 2022-11-22 10:17 | CT_ITS ---
WS: [id number] LDCT LUNG CANCER SCREENING HISTORY: LOW DOSE CANCER SCREENING CT TECHNIQUE: Axial imaging performed from the apices to 1 cm below the costophrenic angles. Coronal and sagittal reformats are submitted with axial MIP series. All CT scans at [facility] use at least one of these dose optimization techniques: automated exposure control; mA and/or kV adjustment per patient size (includes targeted exams where dose is matched to clinical indication); or iterativ e reconstruction. DLP: 97.61 mGy.cm DIvol: Mean CTDIvol: 2.20 (mGy) COMPARISON: None available. Diagnostic quality: Satisfactory Lungs: 8 mm spiculated nodule in the posterior RIGHT lower lobe. No mass or endobronchial lesions. Pa raseptal emphysema. Heart: Normal size heart with no pericardial effusion.. Moderate to severe coronary artery calcificat ions. Other findings: Atherosclerosis aorta. Normal size pulmonary artery. No adenopathy. Small hiatal anna ia. CT/CT lung screening [id number] IMPRESSION: LUNG-RADS: 4A-Probably Suspicious FOLLOW UP: 3 Month LDCT OTHER FINDINGS (S MODIFIER): None.
== END 2022-11-22 09:37 | disposition home or self-care (01) ==
LOC: RAD 09:41
DX: Z12.2 Encounter for screening for malignant neoplasm of respiratory organs (principal); Z13.6 Encounter for screening for cardiovascular disorders; F17.211 Nicotine dependence, cigarettes, in remission
CPT/HCPCS: 71271; 76706

== ENCOUNTER → 2022-12-16 13:12 | Outpatient (BNVA) | payer OTHER, SELFPAY | PROVIDERS: Visit Provider Thoracic Surgery (Cardiothoracic Vascular Surgery) | DX: I65.23 Occlusion and stenosis of bilateral carotid arteries (principal); R91.1 Solitary pulmonary nodule; F17.210 Nicotine dependence, cigarettes, uncomplicated | CPT/HCPCS: 99203 ==

== ENCOUNTER 2023-01-26 10:41 | Outpatient (RCR) | payer OTHER, SELFPAY | END 2023-01-28 23:59 | disposition home or self-care (01) | LOC: SPT 10:41 | PROVIDERS: Visit Provider Hospitalist | DX: M54.50 Low back pain, unspecified (principal) | CPT/HCPCS: 97110; 97161 ==

== ENCOUNTER → 2023-02-14 13:46 | Outpatient (BNVA) | payer OTHER, SELFPAY | PROVIDERS: Visit Provider Nurse Practitioner Family | DX: L21.8 Other seborrheic dermatitis (principal); L81.4 Other melanin hyperpigmentation; L40.0 Psoriasis vulgaris; L57.0 Actinic keratosis; L57.8 Other skin changes due to chronic exposure to nonionizing radiation | CPT/HCPCS: 17000; 17003; 99214 ==

== ENCOUNTER 2023-03-08 14:59 | Outpatient (CLI) | payer OTHER, SELFPAY ==
--- NOTE | 2023-03-08 14:00 | CTR_ITS ---
PROCEDURE INFORMATION: Exam: CT Chest With Contrast; Diagnostic Exam date and time: 03/08/2023 4:14 PM Age: 72 years old Clinical indication: Condition or disease; Lung condition and disease; Pulmonary nodule, solitary; Additional info: Lung nodule, to be done in 3 months TECHNIQUE: Imaging protocol: Diagnostic computed tomography of the chest with contrast. Radiation optimization: All CT scans at this facility use at least one of these dose optimization techniques: automated exposure control; mA and/or kV adjustment per patient size (includes targeted exams where dose is matched to clinical indication); or iterative reconstruction. Contrast material: OMNI 350; Contrast volume: 95 ml; Contrast route: INTRAVENOUS (IV); REPORTING DATA: Count of CT and Cardiac NM exams in prior 12 months: This patient has received 3 known CTs and 0 known cardiac nuclear medicine studies in the 12 months prior to the current study. COMPARISON: CT lung screening [id number] 11/22/2022 10:45 AM RADIATION DOSE METRICS: Total DLP (mGy-cm): 454.88 FINDINGS: Lungs: Right lower lobe 8 mm pulmonary nodule, similar to prior exam, previously noted to be suspicious. Emphysematous changes. Pleural spaces: Unremarkable. No pneumothorax. No pleural effusion. Heart: Unremarkable. No cardiomegaly. No pericardial effusion. Coronary arteries: Coronary artery atherosclerotic calcifications. Lymph nodes: Unremarkable. No enlarged lymph nodes. Vasculature: Proximal celiac artery atherosclerotic calcification with suspected 60-70% luminal narrowing with contrast seen distally. Liver: Hepatic steatosis. Left hepatic lobe cyst. Bones/joints: Unremarkable. No acute fracture. Soft tissues: Unremarkable. CT/CT chest w con* [id number] IMPRESSION: 1. Right lower lobe 8 mm pulmonary nodule, similar to prior exam, previously noted to be suspicious. Assessment: Lung-RADS Score 3. Probably Benign - Probably benign finding(s) - short term follow up suggested; includes nodules with a low likelihood of becoming a clinically active cancer. Management recommendation: Low-dose chest CT in 6 months. 2. Hepatic steatosis. 3. Left hepatic lobe cyst. 4. Proximal celiac artery atherosclerotic calcification with suspected 60-70% luminal narrowing with contrast seen distally. 5. Coronary artery atherosclerotic calcifications. 6. Emphysematous changes. COMMENTS: In the absence of a history or active diagnosis of lung cancer, it is recommended that this patient with emphysema be evaluated for enrollment in a low dose CT lung cancer screening program.
--- NOTE | 2023-03-08 15:05 | USCV_ITS ---
Krishna Bernard Age: 72 Gender: M : 1950 Exam Date: 03/08/2023 15:12 Ordering Phys: Apolinar Lazo Technologist: Jason Olson Cloth Neutralizer Exam Location: [facility] [place] Indication: LEG PAIN RIGHT LEFT Brachial 153.00 mmHg Brachial 141.00 mmHg Pressure (mmHg) Waveform Pressure (mmHg) Waveform 0.61 Ankle/Brachial Index 0.85 149.00 Pre-Exercise Toe Pressure 134.00 0.97 Pre-Exercise Toe/Brachial Index 0.88 FINDINGS Resting KAMLA of 0.6 on the right side and 0.85 on the left side Resting KAMLA of 0.97 on the right and 0.88 on the left CONCLUSIONS 1. Normal resting ABIs bilaterally suggesting moderate peripheral artery disease in the right side and mild peripheral artery disease in the left side 2. Normal resting TBI's bilaterally, possibly due to arteriosclerosis in the distal vessels. Dr Frannie Thapa MD [facility] (Electronically Signed) Final Date: 08 March 2023 17:52 S
[2023-03-08 16:10] LABS: Blood Urea Nitrogen 10 mg/dL (8-23)
[2023-03-08] MEDS: iohexol 350 mg/mL 500 mL Btl (per mL) IV (16:16)
== END 2023-03-08 15:00 | disposition home or self-care (01) ==
PROVIDERS: Visit Provider Thoracic Surgery (Cardiothoracic Vascular Surgery)
DX: R91.1 Solitary pulmonary nodule (principal)
CPT/HCPCS: 71260; 82565; 84520; 93922; Q9967

== ENCOUNTER → 2023-03-15 13:28 | Outpatient (BNVA) | payer OTHER, SELFPAY | PROVIDERS: Visit Provider Internal Medicine Pulmonary Disease | DX: R91.1 Solitary pulmonary nodule; J43.9 Emphysema, unspecified; F17.210 Nicotine dependence, cigarettes, uncomplicated | CPT/HCPCS: 99204 ==

== ENCOUNTER → 2023-03-17 13:17 | Outpatient (BNVA) | payer OTHER, SELFPAY | PROVIDERS: Visit Provider Thoracic Surgery (Cardiothoracic Vascular Surgery) | DX: I65.23 Occlusion and stenosis of bilateral carotid arteries (principal); F17.210 Nicotine dependence, cigarettes, uncomplicated | CPT/HCPCS: 99212 ==

== ENCOUNTER → 2023-03-28 14:26 | Outpatient (BNVA) | payer OTHER, SELFPAY | PROVIDERS: Visit Provider Podiatrist Foot & Ankle Surgery | DX: I73.9 Peripheral vascular disease, unspecified (principal); M77.41 Metatarsalgia, right foot; M77.42 Metatarsalgia, left foot; M20.31 Hallux varus (acquired), right foot; M20.32 Hallux varus (acquired), left foot; I87.2 Venous insufficiency (chronic) (peripheral) | CPT/HCPCS: 99214 ==

== ENCOUNTER 2023-04-21 09:58 | Outpatient (CLI) | payer OTHER, SELFPAY ==
[2023-04-21 10:17] VITALS: PULSE 97; RESP 18; O2SAT 98
[2023-04-21] MEDS: albuterol 2.5 mg/3 mL Neb INHALATION (10:21)
[2023-04-21 10:22] VITALS: PULSE 96
== END 2023-04-21 09:59 | disposition home or self-care (01) ==
PROVIDERS: Visit Provider Internal Medicine Pulmonary Disease
DX: R06.09 Other forms of dyspnea (principal)
CPT/HCPCS: 94060; 94618; 94726; 94729; J7613

== ENCOUNTER 2023-04-22 08:14 | Outpatient (CLI) | payer OTHER, SELFPAY ==
[2023-04-22 08:38] VITALS: BMI 29.9
--- NOTE | 2023-04-22 08:41 | ECG_ITS ---
[facility] Test Date: 2023-04-22 Pat Name: Krishna Bernard Department: Room: Gender: Male Medical Aide: James Pham : 1950 Requested By: German Roberson Order Number: [id number] [place] MD: Richie Jessica M.D. Interpretive Statements NAME OF STUDY: LEXISCAN SESTAMIBI STRESS TEST INDICATION: [preop evel, ] Procedure: At the baseline, the blood pressure was 156/87 mmHg with a heart rate of 78 bpm. The electrocardiogram showed normal sinus rhythm, right bundle branch block and no significant ST T wave changes The Lexiscan was infused over a period of 20 seconds. A total of 0.4 mg of Lexiscan was infused. The stress phase was continued for a total of 5 minutes. Heart rate was at the end of stress phase was 91 bpm and a blood pressure of 106/81 mmHg. The EKG at the peak infusion revealed normal sinus rhythm with no significant ST-T wave changes. Sestamibi was injected 20 seconds after the Lexiscan infusion. Blood pressure at the end of recovery phase was 156/76mmHg with a heart rate of 91 bpm. Conclusion: 1. Normal EKG response to Lexiscan infusion 2. No Lexiscan induced chest pain or cardiac arrhythmia. 3. Normal blood pressure and heart rate response. 4. Sestamibi/sestamibi perfusion scan pending; see separate report. Electronically Signed On 05-02-2023 12:44:22 CDT by Richie Jessica M.D. [id number]
--- NOTE | 2023-04-22 08:42 | NMCV_ITS ---
NM ana perf SPECT r/s* [id number] Krishna Bernard Age: 72 Gender: M : 1950 Exam Date: 04/22/2023 09:27 Ordering Phys: German Whipple Technologist: ABI Pierre Exam Location: [facility] Indications: CHEST PAIN STRESS TEST Please see separate stress test report in [facility] for full findings IMAGE PROTOCOL Rest/Stress 1 Lexiscan Day Radiopharmaceutical Dose (mCi) Administration Site Administered by Rest: Tc-99m 10.6 IV Rosas Brady, LINOLEUM FLOOR LAYER Sestamibi Stress:Tc-99m 32.6 IV Rosas Brady, LINOLEUM FLOOR LAYER Sestamibi Rest: 22-Apr-2023 60 Discovery 630 Stress: 22-Apr-2023 30 Discovery 630 0.4mg Lexiscan. Supine position only as patient was unable to lay prone. SPECT RESULTS Technical Quality: Excellent Raw Data Analysis: Normal Image Corrections: No attenuation or motion correction applied Summed Stress Score: 0 Summed Rest Score: 1 Summed Difference Score: 0 PERFUSION FINDINGS SPECT images demonstrate homogeneous tracer distribution throughout the myocardium. FUNCTIONAL RESULTS (calculated via Gated SPECT) Stress Image LV EF (%): 63 Stress EDV (mL):96 TID: 1.15 Stress ESV (mL):36 FUNCTIONAL FINDINGS: There is normal left ventricular systolic function. IMPRESSIONS 1. Normal myocardial perfusion imaging with no evidence of ischemia 2. LV systolic function is normal Richie Jessica MD (Electronically Signed) Final Date: 22 April 2023 13:28 S
[2023-04-22] MEDS: regadenoson 0.4 Mg/5 ml Syringe IVP (10:07)
[2023-04-22 10:27] VITALS: BP 156/76; PULSE 91
== END 2023-04-22 08:15 | disposition home or self-care (01) ==
LOC: CDL 08:15
PROVIDERS: Visit Provider Physician Assistant Medical
DX: Z01.810 Encounter for preprocedural cardiovascular examination (principal); R07.9 Chest pain, unspecified
CPT/HCPCS: 36415; 78452; 93017; 96374; A9500; J2785

== ENCOUNTER → 2023-06-14 11:10 | Outpatient (BNVA) | payer OTHER, SELFPAY | PROVIDERS: Visit Provider Podiatrist Foot & Ankle Surgery | DX: I73.9 Peripheral vascular disease, unspecified (principal); M20.31 Hallux varus (acquired), right foot; M20.32 Hallux varus (acquired), left foot; I87.2 Venous insufficiency (chronic) (peripheral); L60.3 Nail dystrophy | CPT/HCPCS: 11721 ==

== ENCOUNTER 2023-06-16 17:06 | Emergency (ER) | payer OTHER, SELFPAY ==
[2023-06-16 17:07] VITALS: BP 180/89; PULSE 89; TEMP 36.6; O2SAT 94; BMI 29.9
--- NOTE | 2023-06-16 17:32 | XRR_ITS ---
PROCEDURE INFORMATION: Exam: XR Right Forearm Exam date and time: 06/16/2023 5:52 PM Age: 73 years old Clinical indication: Injury or trauma; Patient HX: RT wrist/forearm pain post fall TECHNIQUE: Imaging protocol: Radiologic exam of the right forearm. Views: 2 views. COMPARISON: CR (UP EXM, ) 06/16/2023 5:52 PM FINDINGS: Bones/joints: No fracture or dislocation. No acute osseous or joint abnormality. Soft tissues: Normal. XR/XR forearm RT 2V [id number] IMPRESSION: The findings are normal.
--- NOTE | 2023-06-16 17:32 | XRR_ITS ---
PROCEDURE INFORMATION: Exam: XR Left Shoulder Exam date and time: 06/16/2023 5:52 PM Age: 73 years old Clinical indication: Injury or trauma; Fall; Fracture, traumatic injury; Closed fracture; Humerus; Left; Additional info: Fall pain TECHNIQUE: Imaging protocol: Radiologic exam of the left shoulder. Views: 2 or more views. COMPARISON: CT chest w con* [id number] 03/08/2023 4:14 PM FINDINGS: Bones/joints: Mildly displaced fracture through the surgical neck of the proximal left humerus. Acromioclavicular and glenohumeral spurring. Soft tissue calcifications likely represent calcific tendinitis. Soft tissues: Normal. XR/XR shoulder LT min 2V* [id number] IMPRESSION: Fracture.
--- NOTE | 2023-06-16 17:32 | XRR_ITS ---
PROCEDURE INFORMATION: Exam: XR Right Wrist Exam date and time: 06/16/2023 5:52 PM Age: 73 years old Clinical indication: Injury or trauma; Fall; Sprain or strain; Wrist; Right; Additional info: Fall pain TECHNIQUE: Imaging protocol: Radiologic exam of the right wrist. Views: 3 or more views. COMPARISON: CR ( EX, ) 06/16/2023 5:52 PM FINDINGS: Bones/joints: Mild demineralization. No acute osseous, joint, or soft tissue abnormality. Soft tissues: See Bones/joints finding. XR/XR wrist RT min 3V* [id number] IMPRESSION: No acute findings.
[2023-06-16 17:34] VITALS: BP 147/81; PULSE 86; RESP 18; O2SAT 94
--- NOTE | 2023-06-16 17:37 | ED_ITS ---
HPI - Extremity Problem General: Chief complaint: Extremity Injury, Upper Stated complaint: Fall Time Seen by Provider: 06/16/23 17:15 History of Present Illness: Presents to the ER by ambulance status post fall. Patient was walking and tripped on his dog landed on the gravel on his left shoulder and trying to catch himself with his right hand. Patient is complaining of pain in his right wrist and forearm and left shoulder. Patient has a skin tear to his left forearm and abrasion above his left thigh. Patient denies any loss of consciousness. Patient is not on any anticoagulation. Review of Systems General: Reports: 10 or more systems reviewed and unremarkable except in HPI and below PFSH ED PFSH: Medical History Carotid stenosis, bilateral Chronic venous insufficiency Family History Father Cancer Sister Cancer Denies family history of Diabetes CAD (coronary artery disease) Hypertension Stroke Social History Smoking and tobacco/nicotine status: current every day tobacco/nicotine user cigarettes Packs smoked per day: 1 Years cigarettes smoked: 60 Alcohol intake: former Substance/Drug Use: current Physical Exam Const: COMMON NORMALS: no acute distress, average body habitus, patient oriented x3, no limitations, healthy appearing, alert and well nourished HENMT: COMMON NORMALS: normocephalic, hearing grossly normal bilaterally, external ears normal, Normal external nose present, moist oral mucous membranes and oropharynx normal; head/scalp not atraumatic (Abrasion above left eye) HEAD & SCALP: normocephalic; not atraumatic (Abrasion above left eye) NOSE: Normal external nose present EXTERNAL EAR: Yes external ears normal Eye: COMMON NORMALS: Equal, round and reactive pupils present, EOMs intact bilaterally, conjunctivae normal and no scleral icterus CONJUNCTIVA: Yes conjunctivae normal PUPIL: Yes Equal, round and reactive pupils present Neck/C-Spine: COMMON NORMALS: full ROM, no lymphadenopathy, supple, no meningeal signs, no JVD and Thyroid normal THYROID: Thyroid normal Chest: COMMONS NORMALS: normal inspection of the chest and normal palpation of entire chest wall Resp: COMMON NORMALS: normal respiratory effort, No retractions, No use of accessory muscles and clear to auscultation bilaterally AUSCULTATION: clear to auscultation bilaterally Cardio: COMMON NORMALS: no JVD, regular rate, regular rhythm, S1 normal heart sound present, S2 normal heart sound present, No gallops present (Cardio), No clicks present (Cardio), No murmurs present (Cardio) and No rub (Cardio) RATE: regular rate RHYTHM: regular rhythm HEART SOUNDS: S1 normal heart sound present and S2 normal heart sound present GI: COMMON NORMALS: Normal to inspection, nondistended, normoactive bowel sounds present, Soft to palpation, non-tender, No hepatosplenomegaly present and no masses PALPATION: Yes Soft to palpation and Yes No hepatosplenomegaly present Extremity: NARRATIVE EXTREMITY EXAM: Right forearm in splint. Left shoulder in sling. Limited range of motion in both these joints and pain with palpation. Neuro: COMMON NORMALS: patient oriented x3 SENSORIUM/ORIENTATION: Yes alert MENINGEAL SIGNS: Yes no meningeal signs Course Vital Signs: Vital signs: Vital Signs Temperature 97.9 F 06/16/23 17:07 Pulse Rate 78 06/16/23 18:15 Respiratory Rate 18 06/16/23 18:15 Blood Pressure 153/75 06/16/23 18:15 Pulse Oximetry 94 06/16/23 18:15 Oxygen Delivery Me thod Room Air 06/16/23 18:15 MDM - Extremity (Nontraumatic) Medical Decision Making X-rays was obtained of the forearm and the wrist on the right side and the left shoulder. Left shoulder showed a mildly displaced fracture through the surgical neck of the left humerus. Patient be placed in a sling patient will be placed on Percocet for pain medicine as he is already on [place] for chronic pain and he will be referred to orthopedics. Differential Diagnosis Unlikely herpes zoster, gout, cellulitis, superficial thrombophlebitis, deep venous thrombosis of upper extremity, lower extremity edema or deep vein thrombosis of lower extremity Medical Records I reviewed the patient's medical records. Lab Data I reviewed the patient's lab results. Radiology Impressions Forearm X-Ray 06/16/23 17:32 IMPRESSION: The findings are normal. Shoulder X-Ray 06/16/23 17:32 IMPRESSION: Fracture. Wrist X-Ray 06/16/23 17:32 IMPRESSION: No acute findings. All radiology interpretation(s) finalized by discharge Discharge Plan Discharge Patient Disposition: Home Clinical Impression: Closed left humeral fracture Qualifiers: Encounter type: initial encounter Humerus Location: surgical neck Fracture morphology: unspecified fracture morphology Fracture alignment: displaced Qualified Code(s): S42.212A - Unspecified displaced fracture of surgical neck of left humerus, initial encounter for closed fracture Fall Qualifiers: Encounter type: initial encounter Qualified Code(s): W19.XXXA - Unspecified fall, initial encounter Condition: Stable Prescriptions: New Percocet 10-325 mg tablet 1 tab PO TID PRN (Reason: pain) Qty: 14 0RF No Action lisinopril 10 mg tablet 10 mg PO DAILY aspirin 81 mg tablet,delayed release (DR/EC) 81 mg PO DAILY rosuvastatin 10 mg tablet 10 mg PO DAILY hydrocodone-acetaminophen 5-500 mg tablet PO cholecalciferol (vitamin D3) 50 mcg (2,000 unit) capsule 50 mcg PO DAILY albuterol sulfate 90 mcg/actuation aerosol powdr breath activated 2 inh inhalation Q6H PRN (DME) custom molded inserts with shoes See Rx Instructions .Route .MEDSUPPLY Qty: 1 0RF Rx Instructions: As directed (DME) Custom Orthopedic Boots (zip up) with custom insoles See Rx Instructions .Route .MEDSUPPLY Qty: 1 0RF Rx Instructions: As directed by [facility] Medical Discharge Orders: Discharge ED (Routine); Ordered 06/16/23 Ordered By: Kayden Rangel Patient Instructions: Proximal Humerus Fracture (ED), Shoulder Immobilizer (ED), Opioid Safety, Pain Management Activity Restrictions/Additional Instructions: Please take the Percocet as needed for severe pain. Do not mix this with your hydrocodone. Your case has been referred to case management for referral to orthopedic surgery they should be calling you within the next 1-2 business days to arrange this appointment. If they have not called you within 2 business days please call them. Please follow-up with your family practice physician within 7 to 10 days for further evaluation and treatment. Please wear your shoulder immobilizer at all times until seen by orthopedics. Coding Level of Care Code ED Attendance Secretary for Addison Lehman
[2023-06-16 18:15] VITALS: BP 153/75; PULSE 78; RESP 18; O2SAT 94
--- NOTE | 2023-06-16 18:15 | PC.NURSE ---
PATIENT LEFT ELBOW BANDAGED WITH TELFA AND COBAN.
[2023-06-16] MEDS: oxyCODONE-APAP 10-325 mg Tablet 1 TAB PO (18:46)
[2023-06-16 19:13] VITALS: BP 127/91; PULSE 94; RESP 18; O2SAT 95
[2023-06-16 19:14] VITALS: RESP 18; O2SAT 95
[2023-06-16] MEDS: oxyCODONE-APAP 10-325 mg Tablet PO (19:14)
[2023-06-16 19:15] VITALS: BP 127/91; PULSE 96; RESP 18; O2SAT 95
--- NOTE | 2023-06-17 10:40 | DCPLANNER ---
Message sent to ortho for a follow up on a surgical neck humeral fx.
== END 2023-06-16 19:31 | disposition home or self-care (01) ==
PROVIDERS: Emergency Provider Emergency Medicine
DX: S42.212A Unspecified displaced fracture of surgical neck of left humerus, initial encounter for closed fracture (principal); Z79.82 Long term (current) use of aspirin; F17.210 Nicotine dependence, cigarettes, uncomplicated; W01.0XXA Fall on same level from slipping, tripping and stumbling without subsequent striking against object, initial encounter
CPT/HCPCS: 73030; 73090; 73110; 99284

== ENCOUNTER → 2023-06-21 15:18 | Outpatient (BNVA) | payer OTHER, SELFPAY | PROVIDERS: PCP Nurse Practitioner; Referring Provider Emergency Medicine; Visit Provider Physician Assistant | DX: S42.212A Unspecified displaced fracture of surgical neck of left humerus, initial encounter for closed fracture (principal); X58.XXXA Exposure to other specified factors, initial encounter | CPT/HCPCS: 73030; 73090; 99203 ==

== ENCOUNTER → 2023-06-30 14:04 | Outpatient (BNVA) | payer OTHER, SELFPAY | PROVIDERS: PCP Nurse Practitioner; Visit Provider Physician Assistant | DX: S42.302A Unspecified fracture of shaft of humerus, left arm, initial encounter for closed fracture (principal); W01.0XXA Fall on same level from slipping, tripping and stumbling without subsequent striking against object, initial encounter; S50.312A Abrasion of left elbow, initial encounter | CPT/HCPCS: 73030; 99213 ==

== ENCOUNTER 2023-07-06 08:45 | Outpatient (CLI) | payer OTHER, SELFPAY ==
--- NOTE | 2023-07-06 08:51 | USCV_ITS ---
BernardKrishna dietrich Age: 73 Gender: M : 1950 Exam Date: 07/06/2023 09:12 Ordering Phys: Hawa Conde Technologist: [place] [facility] [place]: aaa screening HISTORY: Diameter (cm) AP x Transverse x Length Velocity (cm/s) Waveform Prox Aorta: 2.26 x 2.33 x 133.05 Mid Aorta: 2.02 x 2.16 x 122.00 Distal Aorta: 2.50 x 2.29 x 117.80 Right Iliac Prox: 1.15 x 1.33 x 194.10 Left Iliac Prox: 1.21 x 1.24 x 187.10 Stent Prox Landing x x Aneurysmal Sac Max x x Lt Lat Sac Dim Rt Lat Sac Dim Stent Dist Landing x x Right Iliac Stent x x Left Iliac Stent x x Right Renal Art Left Renal Art FINDINGS: Comparison:. 11/22/22. Ectatic abdominal aorta with evidence of atherosclerotic plaque noted. No evidence of abdominal aortic aneurysm. There is evidence of atherosclerotic plaque no significant stenosis in the right common iliac artery. There is evidence of atherosclerotic plaque no significant stenosis in the left common iliac artery. CONCLUSIONS Ectatic abdominal aorta with evidence of atherosclerotic plaque noted. No evidence of abdominal aortic aneurysm. Dr. Shweta Garcia DO (Electronically Signed) Final Date: 06 July 2023 14:00 S
== END 2023-07-06 08:46 | disposition home or self-care (01) ==
LOC: RAD 08:45
PROVIDERS: PCP Nurse Practitioner; Visit Provider Nurse Practitioner
DX: Z87.891 Personal history of nicotine dependence (principal)
CPT/HCPCS: 76706

== ENCOUNTER 2023-07-12 13:33 | Outpatient (CLI) | payer OTHER, SELFPAY ==
--- NOTE | 2023-07-12 13:30 | CTR_ITS ---
PROCEDURE INFORMATION: Exam: CT Chest Without Contrast; Diagnostic Exam date and time: 07/12/2023 1:51 PM Age: 73 years old Clinical indication: Condition or disease; Lung condition and disease; Pulmonary nodule, solitary; Additional info: F/u nodule TECHNIQUE: Imaging protocol: Diagnostic computed tomography of the chest without contrast. Radiation optimization: All CT scans at this facility use at least one of these dose optimization techniques: automated exposure control; mA and/or kV adjustment per patient size (includes targeted exams where dose is matched to clinical indication); or iterative reconstruction. REPORTING DATA: Count of CT and Cardiac NM exams in prior 12 months: This patient has received 4 known CTs and 0 known cardiac nuclear medicine studies in the 12 months prior to the current study. COMPARISON: 1. CT chest w con* [id number] 03/08/2023 4:14 PM 2. CR XR shoulder LT min 2V* [id number] 06/30/2023 2:18 PM RADIATION DOSE METRICS: Total DLP (mGy-cm): 676.24 FINDINGS: Lungs: There is no consolidation. There is a focus of pulmonary parenchymal architectural distortion in the posterior aspect of the superior segment of the right lower lobe visible on axial series 5, image 29 through 31. No discrete nodule. The finding is stable since 11/22/2022. Pleural spaces: There is no pleural effusion or pneumothorax. Heart: Heart size is normal. There is no pericardial effusion. Coronary arteries: There is severe coronary artery calcification. Lymph nodes: There is no mediastinal or hilar lymphadenopathy. Vasculature: There is moderate aortic atherosclerotic disease. Diaphragm: There is a small sliding-type hiatal hernia. Intraperitoneal space: Visible structures in the upper abdomen are unremarkable. Bones/joints: Left proximal humeral fracture is partially imaged. There is mild degenerative disease at both shoulders. Soft tissues: The extrathoracic soft tissues are unremarkable. CT/CT chest wo con [id number] IMPRESSION: 1. Focal pulmonary parenchymal architectural distortion in the posterosuperior right lower lobe is stable since 11/22/2022. No discrete nodule is visible. Consider follow-up chest CT in 1 year. 2. Partially imaged left proximal humeral fracture, corresponding to the findings on 06/30/2023.
== END 2023-07-12 13:34 | disposition home or self-care (01) ==
LOC: RAD 13:34
PROVIDERS: PCP Nurse Practitioner; Visit Provider Internal Medicine Pulmonary Disease
DX: R91.1 Solitary pulmonary nodule (principal); S42.202A Unspecified fracture of upper end of left humerus, initial encounter for closed fracture; X58.XXXA Exposure to other specified factors, initial encounter
CPT/HCPCS: 71250

== ENCOUNTER → 2023-07-21 09:30 | Outpatient (BNVA) | payer OTHER, SELFPAY | PROVIDERS: PCP Nurse Practitioner; Visit Provider Physician Assistant | DX: S42.202D Unspecified fracture of upper end of left humerus, subsequent encounter for fracture with routine healing (principal); X58.XXXD Exposure to other specified factors, subsequent encounter | CPT/HCPCS: 73060; 99213 ==

== ENCOUNTER → 2023-08-02 11:07 | Outpatient (BNVA) | payer OTHER, SELFPAY | PROVIDERS: PCP Nurse Practitioner; Referring Provider Nurse Practitioner; Visit Provider Internal Medicine Cardiovascular Disease | DX: R07.9 Chest pain, unspecified (principal); I45.10 Unspecified right bundle-branch block; R01.1 Cardiac murmur, unspecified; I73.9 Peripheral vascular disease, unspecified; I65.23 Occlusion and stenosis of bilateral carotid arteries; I10 Essential (primary) hypertension; J44.9 Chronic obstructive pulmonary disease, unspecified; I87.2 Venous insufficiency (chronic) (peripheral); F17.210 Nicotine dependence, cigarettes, uncomplicated; I45.19 Other right bundle-branch block | CPT/HCPCS: 93005; 99204 ==

== ENCOUNTER 2023-08-30 09:21 | Outpatient (CLI) | payer OTHER, SELFPAY ==
--- NOTE | 2023-08-30 09:42 | USCV_ITS ---
Marco AntonioKrishna Age: 73 Gender: M : 1950 Exam Date: 08/30/2023 09:51 Ordering Phys: Hawa Conde Technologist: [place] [facility] [place]: [place]/occlusion Risk Factors: Previous Vascular Surgery: Right Brachial BP: / Left Brachial BP: / Right Left Velocity (cm/s) Spectral Plaque Velocity (cm/s) Spectral Plaque Syst/Diast Broadening Syst/Diast Broadening 101.40/23.20 Prox CCA 63.90 / 12.50 81.60/ 30.90 Mid CCA 70.90 / 14.80 89.30/ 25.40 Distal CCA 53.00 / 11.70 94.80/ 33.10 Prox ICA / 132.80/41.20 Mid ICA / 107.60/31.20 Distal ICA / 112.50 ECA 80.30 1.31 ICA/CCA Occluded Vertebral Antegrade / cm/s 87.40/ 26.00 cm/s Tri Subclavian Tri 89.20 155.0 0 FINDINGS Comparison:. 10/04/22 Diffuse right carotid scattered calcified plaque and intimal thickening throughout. Mild elevation of velocity. Occluded left ICA is new since the prior exam. No flow identified in the right vertebral artery. CONCLUSIONS Complete occlusion left ICA. Right ICA stenosis < 50%. Extensive plaque right carotid artery. No flow in right vertebral artery. Dr. Shweta Garcia DO (Electronically Signed) Final Date: 30 August 2023 12:00 S
== END 2023-08-30 09:22 | disposition home or self-care (01) ==
LOC: RAD 09:22
PROVIDERS: PCP Nurse Practitioner; Visit Provider Nurse Practitioner
DX: G56.01 Carpal tunnel syndrome, right upper limb (principal); I65.23 Occlusion and stenosis of bilateral carotid arteries
CPT/HCPCS: 93880; 95908

== ENCOUNTER → 2023-09-01 11:26 | Outpatient (BNVA) | payer OTHER, SELFPAY | PROVIDERS: PCP Nurse Practitioner; Visit Provider Orthopaedic Surgery | DX: S42.202A Unspecified fracture of upper end of left humerus, initial encounter for closed fracture (principal); X58.XXXA Exposure to other specified factors, initial encounter | CPT/HCPCS: 73030; 99213 ==

== ENCOUNTER 2023-09-16 15:25 | Outpatient (CLI) | payer OTHER, SELFPAY ==
--- NOTE | 2023-09-16 15:30 | CT_ITS ---
WS: [id number] CT chest wo con [id number] HISTORY: R91.1 - Solitary pulmonary nodule TECHNIQUE: Axial imaging performed through the thorax. Coronal and sagittal reformats are submitted. All CT scans at [facility] use at least one of these dose optimization techniques: automated exposure control; mA and/or kV adjustment per patient size (includes targeted exams where dose is mat ched to clinical indication); or iterative reconstruction. CONTRAST: None DLP: 661.98 mGy.cm COMPARISON: 07/12/2023, 03/08/2023, 11/22/2022 Lungs and central airway: Reidentified is an irregular opacification in the superior segment RIGHT lo wer lobe which is similar to 11/22/2022. Maximum diameter 5 mm. Lungs are hyperinflated. No mass or ad ditional nodule. Pleura: Normal. No pleural effusion. Heart and pericardium: Normal size heart with no pericardial effusion. Mediastinum and yakelin: No mediastinum or hilar adenopathy. Vessels: Mild atherosclerosis aorta with plaque continuing into the great vessels. Normal pulmonary a rtery. Advanced calcifications in the coronary arteries involving all 3 of the major branches. Chest wall and lower neck: No soft tissue masses. Upper abdomen: No adrenal mass. Vascular calcifications. Osseous structures: Nonunion fracture LEFT humeral neck with impaction along the fracture line. IMPRESSION: 1. No change in the slightly spiculated nodule in the superior segment RIGHT lower lobe. Spiculation measures approximately 5 mm at its maximum diameter. Consider additional 12-month chest CT follow-up . 2. Chronic emphysema. 3. Atherosclerosis aorta. 4. No mass or pneumonia. 5. Advanced coronary artery calcifications. 6. Nonhealed fracture LEFT humeral neck.
== END 2023-09-16 15:26 | disposition home or self-care (01) ==
LOC: RAD 15:26
PROVIDERS: PCP Nurse Practitioner; Visit Provider Internal Medicine Pulmonary Disease
DX: R91.1 Solitary pulmonary nodule (principal); J43.8 Other emphysema; I70.0 Atherosclerosis of aorta; S12.9XXA Fracture of neck, unspecified, initial encounter; X58.XXXA Exposure to other specified factors, initial encounter; Y93.9 Activity, unspecified; Y92.9 Unspecified place or not applicable; Y99.9 Unspecified external cause status
CPT/HCPCS: 71250

== ENCOUNTER → 2023-10-18 11:16 | Outpatient (BNVA) | payer OTHER, SELFPAY | PROVIDERS: PCP Nurse Practitioner; Visit Provider Podiatrist Foot & Ankle Surgery | DX: L60.8 Other nail disorders (principal); I73.9 Peripheral vascular disease, unspecified; M20.31 Hallux varus (acquired), right foot; M20.32 Hallux varus (acquired), left foot; I87.2 Venous insufficiency (chronic) (peripheral); L60.3 Nail dystrophy | CPT/HCPCS: 11721; 72100; 73030; 73090; 99214 ==

== ENCOUNTER → 2023-11-16 14:30 | Outpatient (BNVA) | payer OTHER, SELFPAY | PROVIDERS: PCP Nurse Practitioner; Visit Provider Nurse Practitioner Family | DX: D48.5 Neoplasm of uncertain behavior of skin (principal); L57.0 Actinic keratosis; L81.4 Other melanin hyperpigmentation; D22.5 Melanocytic nevi of trunk | CPT/HCPCS: 11102; 17000; 99214 ==

== ENCOUNTER 2023-11-25 14:20 | Outpatient (CLI) | payer OTHER, SELFPAY ==
--- NOTE | 2023-11-25 14:30 | USCV_ITS ---
BernardKrishna dietrich Age: 73 Gender: M : 1950 Exam Date: 11/25/2023 15:13 Ordering Phys: Frannie Thapa MD ([email or web address]) Technologist: Jason Olson [place] [facility] [place]: dyspnea BP: 121 / 63 HR: 84 Rhythm: Sinus Technical Quality: Adequate MEASUREMENTS (Male / Female) Normal Values 2D ECHO LV Diastolic Diameter PLAX 5.6 cm 4.2 - 5.9 / 3.9 - 5.3 cm IVS Diastolic Thickness 0.8 cm 0.6 - 1.0 / 0.6 - 0.9 cm IVS Systolic Thickness 1.5 cm LVPW Diastolic Thickness 1.5 cm 0.6 - 1.0 / 0.6 - 0.9 cm LVPW Systolic Thickness 2.0 cm LVOT Diameter 2.3 cm LV Ejection Fraction 2D Teich 57.9 % LV Ejection Fraction MOD 2C 65.2 % LV Ejection Fraction 2C AL 66.5 % LA Diameter 3.8 cm RA Systolic Volume 4C AL 40.6 ml RA Systolic Volume 4C MOD 41.1 ml LA Sys Volume AL 32.7 cm cubed LA Sys Volume Index AL 13.9 cm cubed/m squared Aorta at Sinotubular Diameter 2.6 cm IVC Diameter 1.7 cm M-MODE LA Ao Ratio MM 0.8 AV Cusp Separation MM 1.3 cm DOPPLER AV Peak Velocity 128.7 cm/s LVOT Peak Velocity 94.0 cm/s AV Area Cont Eq vti 3.0 cm squared AV Area Cont Eq pk 3.0 cm squared MV Peak Velocity 129.0 cm/s MV Area PHT 6.9 cm squared Mitral E to A Ratio 0.7 TR Peak Velocity 221.0 cm/s TR Peak Gradient 19.5 mmHg TR Mean Velocity 192.0 cm/s TR Mean Gradient 15.0 mmHg TR Velocity Time Integral 56.3 cm RV Ejection Time 0.3 s FINDINGS Left Ventricle Normal left ventricular size and systolic function, EF 65% . No regional wall motion abnormalities. Grade I/IV diastolic dysfunction (abnormal relaxation filling pattern), normal to mildly elevated filling pressures. Right Ventricle The right ventricle is normal in size and function. Right Atrium The right atrium is normal in size. Left Atrium The left atrium is normal in size. Mitral Valve No gross abnormalities noted Aortic Valve No gross abnormalities noted Tricuspid Valve Trace tricuspid valve regurgitation. Pulmonic Valve No gross abnormalities noted Pericardium Normal pericardium without effusion. Aorta Normal ascending aorta dimension. IVC Normal inferior vena cava. CONCLUSIONS Normal left ventricular size and systolic function, EF 65% . No regional wall motion abnormalities. Grade I/IV diastolic dysfunction (abnormal relaxation filling pattern), normal to mildly elevated filling pressures. Trace tricuspid valve regurgitation. Possibly normal PA pressure. There is no pericardial effusion. There are no intracardiac masses. No similar previous studies are available for comparison Dr Frannie Thapa MD [facility] (Electronically Signed) Final Date: 01 Dec 2023 21:07 S
== END 2023-11-25 14:21 | disposition home or self-care (01) ==
LOC: RAD 14:20
PROVIDERS: PCP Nurse Practitioner; Visit Provider Internal Medicine Cardiovascular Disease
DX: J44.9 Chronic obstructive pulmonary disease, unspecified (principal)
CPT/HCPCS: 93306

== ENCOUNTER → 2023-12-01 13:25 | Outpatient (BNVA) | payer OTHER, SELFPAY | PROVIDERS: PCP Nurse Practitioner; Visit Provider Orthopaedic Surgery | DX: M48.062 Spinal stenosis, lumbar region with neurogenic claudication (principal) | CPT/HCPCS: 99214 ==

== ENCOUNTER 2023-12-13 14:17 | Outpatient (CLI) | payer OTHER, SELFPAY ==
--- NOTE | 2023-12-13 14:30 | MR_ITS ---
WS: [id number] MRI LUMBAR SPINE WITH AND WITHOUT CONTRAST HISTORY: Chronic back pain. No surgery. COMPARISON: None available. TECHNIQUE: Sagittal and axial multisequence imaging is submitted. Postcontrast sequences 20 mL IV. Mild cervical stenosis at C3-4. Small disc bulges and osteophytes in the cervical and thoracic spine. Mild RIGHT curvature lumbar spine and straightening. L2 retrolisthesis by 3 mm. No acute fracture or marrow edema. Moderate disc space narrowing and desiccation at all levels. Conus terminates normally at L1-2 disc level. L1-L2: Annular disc bulging with ligamentum flavum and facet arthritis. Disc encroachment upon the th ecal sac and subarticular recesses. Mild central, bilateral subarticular recess and LEFT foraminal st enosis. L2-L3: Mild osteophytic ridging with annular disc bulging. Disc encroachment upon the ventral thecal sac and subarticular recesses. Moderate facet joint arthritis. Disc and osteophyte extend into the fo ramina. Moderate central, bilateral subarticular recess and foraminal stenosis. L3-L4: Diffuse annular disc bulging with osteophytic ridging and marked facet joint arthritis. Severe encroachment upon the thecal sac. High-grade central, bilateral subarticular recess and foraminal st enosis. L4-L5: Diffuse annular disc bulging, osteophytic ridging and facet arthritis. Severe central, bilater al subarticular recess with moderate to severe foraminal stenosis. L5-S1: Diffuse annular disc bulging. Shallow central disc protrusion. No central stenosis. Subarticul ar recess and moderate foraminal stenosis. No discitis or osteomyelitis. No epidural enhancement. RIGHT renal cyst 4.3 cm. MR/MR lumbar spine wo/w con [id number] IMPRESSION: 1. Advanced lumbar spondylosis. Multilevel central, subarticular recess and fo raminal stenosis due to combination of disc, osteophyte and facet arthritis. 2. L3-4: Severe central, bilateral subarticular recess and foraminal stenosis. Complete loss of CSF surrounding the thecal sac. Marked encroachment upon the L3 and L4 nerve roots. 3. L4-5: Severe central, bilateral subarticular recess with moderate to severe foraminal stenosis. 4. L5-S1: Subarticular recess and moderate foraminal stenosis. 5. L2-3: Moderate central, bilateral subarticular recess and foraminal stenosi s. 6. L1-2: Mild central, bilateral subarticular recess and LEFT foraminal stenos is.
== END 2023-12-13 14:18 | disposition home or self-care (01) ==
LOC: RAD 14:17
PROVIDERS: PCP Nurse Practitioner; Visit Provider Orthopaedic Surgery
DX: M48.061 Spinal stenosis, lumbar region without neurogenic claudication (principal); M25.78 Osteophyte, vertebrae; M48.07 Spinal stenosis, lumbosacral region; M47.896 Other spondylosis, lumbar region; M54.50 Low back pain, unspecified; G89.29 Other chronic pain
CPT/HCPCS: 72158; A9577

== ENCOUNTER → 2024-01-31 15:42 | Outpatient (BNVA) | payer OTHER, SELFPAY | PROVIDERS: PCP Nurse Practitioner; Referring Provider Internal Medicine Cardiovascular Disease; Visit Provider Internal Medicine Cardiovascular Disease | DX: I73.9 Peripheral vascular disease, unspecified (principal); I87.2 Venous insufficiency (chronic) (peripheral); I65.23 Occlusion and stenosis of bilateral carotid arteries; I10 Essential (primary) hypertension; Z72.0 Tobacco use | CPT/HCPCS: 99214 ==

== ENCOUNTER → 2024-02-09 11:15 | Outpatient (BNVA) | payer OTHER, SELFPAY | PROVIDERS: PCP Nurse Practitioner; Visit Provider Podiatrist Foot & Ankle Surgery | DX: I73.9 Peripheral vascular disease, unspecified (principal); M20.31 Hallux varus (acquired), right foot; M20.32 Hallux varus (acquired), left foot; I87.2 Venous insufficiency (chronic) (peripheral); L60.3 Nail dystrophy; L60.8 Other nail disorders | CPT/HCPCS: 11721; 99214 ==

== ENCOUNTER 2024-02-17 06:46 | Day surgery (SDC) | payer OTHER, SELFPAY ==
[2024-02-17] VITALS (9 sets, daily range): BP systolic 107–165; BP diastolic 73–89; PULSE 77–84; RESP 16–20; TEMP 36.4–36.6; O2SAT 93–96; BMI 28.7
--- NOTE | 2024-02-17 | XR_ITS ---
WS: [id number] C-ARM RADIOGRAPHS LEFT FOOT; 5 IMAGES HISTORY: RICHAR PICS COMPARISON: None available. Intraoperative imaging during screw fixation of the first IP joint. XR/XR foot LT 2V [id number] IMPRESSION: Intraoperative imaging during screw fixation at the first IP joint.
[2024-02-17] MEDS: sodium chloride 0.9% 1,000 ML 30 ML IV (07:43)
[2024-02-17] MEDS: albuterol 2.5 mg/3 mL Neb INHALATION (07:53)
[2024-02-17] MEDS: ipratropium 0.5 mg/2.5 mL Neb INHALATION (07:54)
--- NOTE | 2024-02-17 07:57 | ANES.PREANE2 ---
Pre-Anesthetic Assessment Height/Weight: Height 1.91 m Weight 104.326 kg Temp Pulse Resp BP Pulse Ox O2 Del Method 97.9 F 77 18 165/87 94 Room Air 02/17/24 07:08 02/17/24 07:55 02/17/24 07:55 02/17/24 07:08 02/17/24 07:55 02/17/24 07:55 Preop Diagnosis: Hallux malleus and tendon contracture left foot. Operation Date: 02/17/24 08:20 Proposed Procedures p Torres tenosuspension with Hallux Interphalangeal Joint Fusion(Left) - Lefty Kumar DPM s Brian Tenosuspension(Left) - Lefty Kumar DPM Was Beta Damir taken within 24 hours: N/A Was Clonidine taken within 24 hours: N/A Last intake: Intake Last Liquid Date 02/16/24 Last Liquid Time 23:00 Last Solid Date 02/16/24 Last Solid Time 23:00 Social No alcohol (Previous EtOH) and No tobacco Exam alert, oriented x 3, clear to auscultation bilaterally and regular rate & rhythm (Soft systolic murmur ) Airway Submandibular: within normal limits Cervical ROM: within normal limits Mallampati: Class II Pulmonary Chronic Obstructive Pulmonary Disease CV/HEM Congestive Heart Failure, Hypertension and Murmur Metabolic Hyperlipidemia Neuropsych Severe bilateral carotid disease Anesthetic Plan ASA status: 4 Anesthesia: MAC (Sedative nature of anesthetic disc and informed consent given ) Medications/Allergies Home Medications Medication Instructions Recorded Confirmed Last Taken Type custom molded inserts with shoes #1 ea 12/03/21 02/09/24 Unknown Rx aspirin 81 mg tablet,delayed 81 mg PO DAILY 12/16/22 02/17/24 02/16/24 History release cholecalciferol (vitamin D3) 50 50 mcg PO DAILY 12/16/22 02/17/24 02/16/24 History mcg (2,000 unit) capsule lisinopril 10 mg tablet 10 mg PO DAILY 12/16/22 02/17/24 02/16/24 History rosuvastatin 10 mg tablet 10 mg PO DAILY 12/16/22 02/17/24 02/16/24 History albuterol sulfate 90 mcg/actuation 2 inh inhalation Q6H PRN Wheezing 03/15/23 02/17/24 02/16/24 History breath activated powder inhaler Custom Orthopedic Boots (zip up) #1 ea 03/28/23 02/09/24 Unknown Rx with custom insoles SHOULDER IMMOBILIZER #1 ea 06/21/23 02/09/24 Unknown Rx Fish Oil 1 tab PO DAILY 08/02/23 02/17/24 02/16/24 History arm sling #1 ea 09/01/23 02/09/24 Unknown Rx miscellaneous medical supply #1 ea 09/01/23 02/09/24 Unknown Rx hydrocodone 7.5 mg-acetaminophen 1 tab PO Q6H PRN Pain 02/16/24 02/17/24 02/16/24 History 325 mg tablet Allergies Allergy/AdvReac Type Severity Reaction Status Date / Time ibuprofen Allergy ADR-Vomitin Verified 02/16/24 14:30 g Current Medications Generic Name Dose Route Start Last Admin Trade Name Freq PRN Reason Stop Dose Admin Sodium Chloride 1,000 mls @ 30 mls/hr 02/17/24 07:00 02/17/24 07:43 Sodium Chloride 0.9% IV 02/18/24 06:59 30 mls/hr .Q24H GLORIA Administration PFSH Anesthesia Medical History Carotid stenosis, bilateral Chronic venous insufficiency Family History Father Cancer Sister Cancer Denies family history of Diabetes CAD (coronary artery disease) Hypertension Stroke Social History Smoking and tobacco/nicotine status: never used tobacco/nicotine Alcohol intake: former Substance/Drug Use: current Data Anesthesia Cardiac Studies: Echocardiogram 11/25/23 Sestamibi Stress Test (Cardiology) 04/22/23
--- NOTE | 2024-02-17 08:12 | P.HPUD_ITS ---
Surgery/Procedure H&P Update DATE OF PROCEDURE: February 17, 2024 DATE H&P PERFORMED: 02/09/24 H&P UPDATE INFORMATION: I have reviewed H&P completed within last 30 days, I have examined patient prior to procedure, No changes to prior documentation and H&P is in [facility] [place] EMR on date indicated PREOP DIAGNOSIS: Hallux malleus and tendon contracture left foot. PLANNED PROCEDURE: Operation Date: 02/17/24 08:20 Proposed Procedures p Torres tenosuspension with Hallux Interphalangeal Joint Fusion(Left) - Lefty Kumar DPM s Torres Tenosuspension(Left) - Lefty Kumar DPM
--- NOTE | 2024-02-17 08:32 | P.BOP_ITS ---
Date of Procedure: 02/17/24 Surgeon: Lefty Kumar DPM Clinical Data Coordinator(s): QIANA Procedure(s) performed: Left foot alcantara tenosuspension Findings of the procedure(s): none Estimated blood loss: 2ml Specimen(s) removed: none Post-operative diagnosis: left hallux malleus. Local MAC, no complications
[2024-02-17] MEDS: ceFAZolin 2,000 MG in sodium chloride 0.9% (plus) 50 ML 100 MG IV (08:33)
[2024-02-17] MEDS: BUPivacaine liposome 13.3 mg/mL SDV 20 mL 266 MG INFILTRATI (08:47)
[2024-02-17] MEDS: BUPivacaine 0.5% INJ 10 mL INJECTION (08:48)
--- NOTE | 2024-02-17 09:29 | PM.OP ---
Operative Report Date of procedure: February 17, 2024 Pre-op diagnosis: Acquired hallux malleus left foot M20.32, other deformity left foot M20.5X2 and pain in left foot M79.672. Post-op diagnosis: Same Procedure done: Left Torres tenosuspension with hallux interphalangeal joint fusion. CPT code 93862 Implants: [place] 4 mm headed cannulated screw, [place] 3.5 mm titanium bone anchor, 4-0 Vicryl, 4-0 nylon Specimens removed/disposition: No specimens Pathology: No pathology Surgeon: Lefty Kumar DPM Tosser: Bella KIRAN Estimated blood loss: 2 See intraoperative documentation IV fluids: See intraoperative documentation Urine output: 0 Complications: None Brief History: I reviewed at length with the patient, the risks, potential complications, benefits, alternatives, expectations, and typical outcomes associated with the surgery. The risks and potential complications were explained in detail, including but not limited to infection, wound dehiscence or soft tissue complications, bleeding and hematoma, chronic edema, neuritis or nerve damage producing numbness or chronic pain, CRPS, failure to relieve pain or worsening pain, thick / painful / unsightly scar, limited motion / stiffness, malposition, delayed union, malunion, or nonunion, fracture, reaction to implants, anesthetic complications, venous thromboembolism, and deformity recurrence. I discussed the notion of no regrets with the patient as it pertains to complications and outcomes. The patient seemed to understand the nature of the proposed care and required convalescence. They asked appropriate questions, answered to their satisfaction. They are aware no guarantees can be made as to a satisfactory outcome and they understand there may be other possible unforeseen complications or outcomes not listed here that will be treated accordingly if they arise. There were no written or implied guarantees given to the patient. They gave informed consent to proceed. Procedure: Under mild sedation the patient was brought to the operating room and remained on the gurney in supine position. A timeout was performed. Anesthesia was then administered by the anesthesia service. Local anesthesia was injected by myself consisting of 20 cc of 0.5% Marcaine plain and a left male block fashion followed by an additional 20 cc of Exparel subcutaneously in a grid like fashion per manufacture recommendations and technique. Well-padded pneumatic tourniquet applied to the left ankle. Left lower extremity was scrubbed, prepped and draped utilizing normal aseptic technique. Left foot was exanguinated with an Esmarch bandage and tourniquet inflated to 250 mmHg. Attention was directed to the left forefoot where a nonreducible hallux malleus deformity was appreciated with tendon contracture. Directly over the hallux interphalangeal joint and the skin incision was performed with a #15 blade and dissection was carried down to the hallux interphalangeal joint utilizing sharp and blunt technique. Care was taken to retract and preserve neurovascular and tendinous structures. All bleeders were ligated and cauterized as necessary. The base of the distal phalanx and head of the proximal phalanx were resected perpendicular to the longitudinal axis with a sagittal saw passed from operative field followed by subchondral drilling of the hallux interphalangeal joint next utilizing standard AO technique a [place] 4 mm screw was utilized across the left hallux interphalangeal joint arthrodesis site with excellent bony apposition and compression noted this was performed intramedullary using antegrade and retrograde technique under C arm fluoroscopy, standard AP, oblique and lateral views confirmed excellent placement of hardware within the intramedullary canal of the distal and proximal interphalangeal joint not violating the metatarsal phalangeal joint, smooth metatarsal phalangeal joint of the first ray was appreciated intraoperatively. The incision was irrigated with copious amounts of sterile skin solution and closed in a layered fashion with 3-0 Vicryl, 4-0 Vicryl and 4 nylon. Attention was directed to the distal metaphysis of the left first metatarsal where a incision was performed through skin with dissection carried down to periosteum utilizing sharp and blunt technique. Care was taken to retract and preserve neurovascular and tendinous structures. All bleeders were ligated and cauterized as necessary. Extensor hallucis longus tendon was transferred to the neck of the left first metatarsal utilizing a [place] 3.5 mm titanium bone anchor and was sutured with nonabsorbable suture effectively transferring the extensor hallucis longus. This incision was flushed and closed with 4-0 nylon. Incisions were then dressed with Adaptic, sterile 4 x 4's, Kerlix and Niles wrap followed by application of a postop shoe to the left foot. Tourniquet was then deflated and a prompt hyperemic response was noted to the distal digits of the left foot. Patient tolerated the procedure and anesthesia well and was transferred to the PACU with vital signs stable and vascular status intact. Following a period of postoperative monitoring he will be discharged home was given at home care instructions and scheduled follow-up as well as myself number to contact me with any postoperative questions or concerns.
[2024-02-17] MEDS: HYDROcodone-acetaminophen 10-325 mg Tablet 1 TAB PO (09:46)
--- NOTE | 2024-02-17 09:57 | ANE.PACU2 ---
Inpatient post-anesthesia follow up: Airway intact: Yes Vital signs: Temperature 97.9 F Pulse Rate 80 Respiratory Rate 17 Blood Pressure 107/73 Pulse Oximetry 95 Oxygen Delivery Me thod Room Air Oxygen Flow Rate Fraction of Inspir ed Oxygen Hydration adequate: Yes Nausea and vomiting: No Pain level: 2 Mental status: Baseline
--- NOTE | 2024-02-17 10:18 | SUR.PHASEII ---
During phase 2 patient had some visible bleeding to operative site. Dr. Kumar notified and he said just to reinforce the site. I applied more kerlix to site.
== END 2024-02-17 10:14 | disposition home or self-care (01) ==
PROVIDERS: PCP Nurse Practitioner; Visit Provider Podiatrist Foot & Ankle Surgery
PROC: (CPT 28755; principal; 2024-02-17 08:10)
PROC: 0LXP0ZZ Transfer Left Lower Leg Tendon, Open Approach (ICD-10-PCS; CPT 28760; 2024-02-17 08:10)
DX: M20.32 Hallux varus (acquired), left foot (principal); M20.5X2 Other deformities of toe(s) (acquired), left foot; J44.9 Chronic obstructive pulmonary disease, unspecified; I11.0 Hypertensive heart disease with heart failure; I50.9 Heart failure, unspecified; E78.5 Hyperlipidemia, unspecified; Z79.82 Long term (current) use of aspirin
CPT/HCPCS: 28760; 73620; 76000; 94640; C1713; C9290; J0690; J2250; J2371; J2704; J3010; J3490; J7030; J7613; J7644

== ENCOUNTER → 2024-03-01 13:42 | Outpatient (BNVA) | payer OTHER, SELFPAY | PROVIDERS: PCP Nurse Practitioner; Visit Provider Podiatrist Foot & Ankle Surgery | DX: Z98.890 Other specified postprocedural states (principal) | CPT/HCPCS: 73630; 99024 ==

== ENCOUNTER → 2024-03-29 13:24 | Outpatient (BNVA) | payer OTHER, SELFPAY | PROVIDERS: PCP Nurse Practitioner; Visit Provider Podiatrist Foot & Ankle Surgery | DX: Z98.890 Other specified postprocedural states (principal); M20.31 Hallux varus (acquired), right foot; M20.32 Hallux varus (acquired), left foot; M77.41 Metatarsalgia, right foot; M77.42 Metatarsalgia, left foot | CPT/HCPCS: 73630; 99213 ==

== ENCOUNTER → 2024-04-12 13:21 | Outpatient (BNVA) | payer OTHER, SELFPAY | PROVIDERS: PCP Nurse Practitioner; Visit Provider Podiatrist Foot & Ankle Surgery | DX: Z98.890 Other specified postprocedural states (principal); M20.31 Hallux varus (acquired), right foot; M20.32 Hallux varus (acquired), left foot; M77.41 Metatarsalgia, right foot; M77.42 Metatarsalgia, left foot | CPT/HCPCS: 73630; 99024 ==

== ENCOUNTER → 2024-05-30 13:49 | Outpatient (BNVA) | payer OTHER, SELFPAY | PROVIDERS: PCP Nurse Practitioner; Visit Provider Nurse Practitioner Family | DX: L81.4 Other melanin hyperpigmentation (principal); D22.5 Melanocytic nevi of trunk; L85.3 Xerosis cutis; L57.8 Other skin changes due to chronic exposure to nonionizing radiation; L21.8 Other seborrheic dermatitis; L57.0 Actinic keratosis | CPT/HCPCS: 17000; 99214 ==

== ENCOUNTER → 2024-06-13 14:00 | Outpatient (BNVA) | payer OTHER, SELFPAY | PROVIDERS: PCP Nurse Practitioner; Visit Provider Podiatrist Foot & Ankle Surgery | DX: I73.9 Peripheral vascular disease, unspecified (principal); M20.31 Hallux varus (acquired), right foot; M20.32 Hallux varus (acquired), left foot; I87.2 Venous insufficiency (chronic) (peripheral); L60.3 Nail dystrophy | CPT/HCPCS: 99213 ==

== ENCOUNTER 2024-07-02 12:24 | Outpatient (CLI) | payer OTHER, SELFPAY ==
--- NOTE | 2024-07-02 12:34 | MM_ITS ---
WS: [id number] BILATERAL 3D TOMOSYNTHESIS DIGITAL DIAGNOSTIC MAMMOGRAPHY WITH CAD CLINICAL INFORMATION: L BREAST PAIN SWELLING HISTORY: LEFT breast pain COMPARISON: None. TECHNIQUE: Bilateral CC, MLO, and ML views. FINDINGS: Scattered fibroglandular densities bilaterally. Dense breast tissue subareolar LEFT breast deep to th e palpable marker suspicious for gynecomastia. Ultrasound of this area is pending. No other suspiciou s mammographic abnormalities ULTRASOUND BREAST LEFT TECHNIQUE: Ultrasound left breast focused area of concern. CLINICAL INFORMATION: L BREAST PAIN SWELLING FINDINGS: Ultrasound subareolar LEFT breast demonstrates dense subareolar shadowing breast tissue compatible wi th gynecomastia. This is a benign finding. No cystic or solid lesions to target for biopsy. No other suspicious findings. MM/MM diag BI tomosynthesis [id number] IMPRESSION: DENSITY: There are scattered areas of fibroglandular density. BI-RADS: 2 - Benign. FOLLOW UP: See Report
--- NOTE | 2024-07-02 12:34 | US_ITS ---
NOTE: Report was unsigned for reason: Order was edited. Original Signature date and time was: 07/02/24 @0146 WS: [id number] BILATERAL 3D TOMOSYNTHESIS DIGITAL DIAGNOSTIC MAMMOGRAPHY WITH CAD CLINICAL INFORMATION: L BREAST PAIN SWELLING HISTORY: LEFT breast pain COMPARISON: None. TECHNIQUE: Bilateral CC, MLO, and ML views. FINDINGS: Scattered fibroglandular densities bilaterally. Dense breast tissue subareolar LEFT breast deep to the palpable marker suspicious for gynecomastia. Ultrasound of this area is pending. No other suspicious mammographic abnormalities ULTRASOUND BREAST LEFT TECHNIQUE: Ultrasound left breast focused area of concern. CLINICAL INFORMATION: L BREAST PAIN SWELLING FINDINGS: Ultrasound subareolar LEFT breast demonstrates dense subareolar shadowing breast tissue compatible with gynecomastia. This is a benign finding. No cystic or solid lesions to target for biopsy. No other suspicious findings. [facility] US/US breast LT limited* [id number] IMPRESSION: DENSITY: There are scattered areas of fibroglandular density. BI-RADS: 2 - Benign. FOLLOW UP: See Report
== END 2024-07-02 12:25 | disposition home or self-care (01) ==
PROVIDERS: PCP Nurse Practitioner; Visit Provider Nurse Practitioner
DX: N62 Hypertrophy of breast (principal); R92.323 Mammographic fibroglandular density, bilateral breasts; N64.4 Mastodynia
CPT/HCPCS: 76642; 77062; G0279

== ENCOUNTER → 2024-08-29 12:55 | Outpatient (BNVA) | payer OTHER, SELFPAY | PROVIDERS: PCP Nurse Practitioner; Visit Provider Podiatrist Foot & Ankle Surgery | DX: L60.8 Other nail disorders (principal); I73.9 Peripheral vascular disease, unspecified; M20.31 Hallux varus (acquired), right foot; M20.32 Hallux varus (acquired), left foot; I87.2 Venous insufficiency (chronic) (peripheral); L60.3 Nail dystrophy | CPT/HCPCS: 11721 ==

== ENCOUNTER → 2024-11-27 12:59 | Outpatient (BNVA) | payer OTHER, SELFPAY | PROVIDERS: PCP Nurse Practitioner; Visit Provider Podiatrist Foot & Ankle Surgery | DX: I73.9 Peripheral vascular disease, unspecified (principal); L60.8 Other nail disorders; M20.31 Hallux varus (acquired), right foot; M20.32 Hallux varus (acquired), left foot; I87.2 Venous insufficiency (chronic) (peripheral); L60.3 Nail dystrophy | CPT/HCPCS: 11721; 99213 ==

== ENCOUNTER → 2024-11-28 14:18 | Outpatient (BNVA) | payer OTHER, SELFPAY | PROVIDERS: PCP Nurse Practitioner; Visit Provider Nurse Practitioner Family | DX: L21.8 Other seborrheic dermatitis (principal); L90.5 Scar conditions and fibrosis of skin; L81.4 Other melanin hyperpigmentation; L85.3 Xerosis cutis; L57.0 Actinic keratosis; X32.XXXA Exposure to sunlight, initial encounter | CPT/HCPCS: 17000; 99214 ==

== ENCOUNTER 2025-01-08 13:32 | Outpatient (CLI) | payer OTHER, SELFPAY ==
--- NOTE | 2025-01-08 14:24 | USCV_ITS ---
BernardKrishna dietrich Age: 74 Gender: M : 1950 Exam Date: 01/08/2025 14:29 Ordering Phys: Frannie Thapa MD ([email or web address]) Technologist: SHANE Exam Location: [facility] – [place] Indication: stenosis Risk Factors: Previous Vascular Surgery: Right Brachial BP: / Left Brachial BP: / Right Left Velocity (cm/s) Spectral Plaque Velocity (cm/s) Spectral Plaque Syst/Diast Broadening Syst/Diast Broadening 59.60/ 18.10 Prox CCA 69.10 / 11.60 70.00/ 23.30 Mid CCA 79.60 / 16.40 71.20/ 16.70 Distal CCA 56.00 / 18.50 94.30/ 22.00 Prox ICA 50.80 / 8.60 145.80/26.60 Mid ICA / 89.80/ 12.70 Distal ICA / 138.20 ECA 81.30 1.30 ICA/CCA 0.90 Antegrade Vertebral Antegrade 27.90/ 5.90 cm/s 45.20/ 9.90 cm/s Tri Subclavian Tri 72.10 101.1 0 FINDINGS Comparison:. 08/30/23 Known occluded left ICA. Diffuse bilateral scattered calcified plaque and intimal thickening throughout the right common carotid artery and extending through the bifurcation. No high grade stenosis. Flow is identified in both vertebral arteries. CONCLUSIONS Right ICA stenosis < 50%. Complete occlusion left ICA. Diffuse right carotid atherosclerotic plaque. No interval change in stenosis since prior exam. Dr. Shweta Garcia DO (Electronically Signed) Final Date: 08 January 2025 14:58 S
== END 2025-01-08 13:33 | disposition home or self-care (01) ==
LOC: RAD 13:33
PROVIDERS: PCP Nurse Practitioner; Visit Provider Internal Medicine Cardiovascular Disease
DX: I65.23 Occlusion and stenosis of bilateral carotid arteries (principal)
CPT/HCPCS: 93880

== ENCOUNTER → 2025-02-04 14:01 | Outpatient (BNVA) | payer OTHER, SELFPAY | PROVIDERS: PCP Nurse Practitioner; Visit Provider Internal Medicine Cardiovascular Disease | DX: I65.23 Occlusion and stenosis of bilateral carotid arteries (principal); I73.9 Peripheral vascular disease, unspecified; I87.2 Venous insufficiency (chronic) (peripheral); I10 Essential (primary) hypertension; Z79.82 Long term (current) use of aspirin; F17.210 Nicotine dependence, cigarettes, uncomplicated | CPT/HCPCS: 99214 ==

== ENCOUNTER → 2025-02-26 13:05 | Outpatient (BNVA) | payer OTHER, SELFPAY | PROVIDERS: PCP Nurse Practitioner; Visit Provider Podiatrist Foot & Ankle Surgery | DX: I73.9 Peripheral vascular disease, unspecified (principal); L60.3 Nail dystrophy; L60.8 Other nail disorders; I87.2 Venous insufficiency (chronic) (peripheral) | CPT/HCPCS: 11721 ==

== ENCOUNTER → 2025-05-28 13:05 | Outpatient (BNVA) | payer OTHER, SELFPAY | PROVIDERS: PCP Nurse Practitioner; Visit Provider Podiatrist Foot & Ankle Surgery | DX: I73.9 Peripheral vascular disease, unspecified (principal); L60.3 Nail dystrophy; L60.8 Other nail disorders; I87.2 Venous insufficiency (chronic) (peripheral) | CPT/HCPCS: 11721 ==

== ENCOUNTER → 2025-07-02 12:58 | Outpatient (BNVA) | payer OTHER, SELFPAY | PROVIDERS: PCP Nurse Practitioner; Visit Provider Nurse Practitioner Family | DX: L81.7 Pigmented purpuric dermatosis (principal); L57.8 Other skin changes due to chronic exposure to nonionizing radiation; L81.4 Other melanin hyperpigmentation; D36.13 Benign neoplasm of peripheral nerves and autonomic nervous system of lower limb, including hip; D18.01 Hemangioma of skin and subcutaneous tissue; L85.3 Xerosis cutis; L82.0 Inflamed seborrheic keratosis; L29.89 Other pruritus; R20.8 Other disturbances of skin sensation; L53.8 Other specified erythematous conditions; Z78.9 Other specified health status; L56.5 Disseminated superficial actinic porokeratosis (DSAP) | CPT/HCPCS: 17000; 17110; 99213 ==